=== PATIENT | male | born 1940 | race Caucasian/White ===

== ENCOUNTER 2018-03-25 22:30 | Emergency (ER) | payer MEDICARE ==
[~2018-03-25] VITALS: Ht 190.5 cm; Wt 99.8 kg
[~2018-03-25 22:30] MED LIST: CENTRUM SILVER1 EAC3 PO; ECOTRIN81 MG PO; FISH OIL 1,2001 EAC1 PO; LIPITOR10 MG PO; LIPOFEN50 MG PO; LOSARTAN POTASS25 MG PO; PAXIL20 MG PO; PLAVIX75 MG PO
[2018-03-25] MEDS ORDERED: LIDOCAINE JELLY 2% 10ML URO-JET ONE (23:56)
== END 2018-03-26 01:21 | disposition home or self-care (01) ==
LOC: ER 22:30
DX: R31.0 Gross hematuria (principal); R33.9 Retention of urine, unspecified; N40.1 Benign prostatic hyperplasia with lower urinary tract symptoms; I10 Essential (primary) hypertension; I51.9 Heart disease, unspecified; E78.5 Hyperlipidemia, unspecified; Z85.53 Personal history of malignant neoplasm of renal pelvis
CPT/HCPCS: 99283

== ENCOUNTER 2018-04-28 20:45 | Emergency (ER) | payer MEDICARE ==
[~2018-04-28] VITALS: Ht 190.5 cm; Wt 102.1 kg
[2018-04-28 23:18] VITALS: BP 146/82
== END 2018-04-28 22:50 | disposition short-term general hospital (02) ==
LOC: FSED 20:45
DX: N40.1 Benign prostatic hyperplasia with lower urinary tract symptoms (principal); R33.8 Other retention of urine; Z98.890 Other specified postprocedural states
CPT/HCPCS: 99283

== ENCOUNTER 2018-12-04 11:47 | Emergency (ER) | payer MEDICARE ==
[~2018-12-04] VITALS: Ht 190.5 cm; Wt 102.1 kg
--- NOTE | 2018-12-04 12:58 | NUR ---
Rios insertion attempted. Unable to pass catheter into the bladder. The rios was removed, when resistance was felt and unable to advance past blockage. No urine in the tube. Dr. Lovell was called to the bedside and agreed that removal was correct course. Spoke to pt about being transferred to [facility] to see his regular Urologist.
[2018-12-04 13:17] LABS: BASOPHILS # (AUTO) 0.1 (0.0-0.1); BASOPHILS % 1.3 % (0.0-1.0); EOSINOPHILS # (AUTO) 0.3 (0.0-0.4); EOSINOPHILS % 4.8 % (0.0-6.0); HEMATOCRIT 39.6 % (38.2-49.6); HEMOGLOBIN 13.2 g/dL (14.0-18.0); LYMPHOCYTES % 16.3 % (18.0-39.1); MEAN CORPUSCULAR HEMOGLOBIN 26.8 pg (28-32); MEAN CORPUSCULAR HGB CONC 33.3 g/dL (31-35); MEAN CORPUSCULAR VOLUME 80.3 fL (81-99); MONOCYTES # (AUTO) 0.4 (0.2-0.8); MONOCYTES % 6.8 % (4.4-11.3); NEUTROPHILS # (AUTO) 4.4 (2.1-6.9); NEUTROPHILS % 70.5 % (38.7-80.0); PLATELET COUNT 362 x10e3/uL (140-360); RED BLOOD COUNT 4.93 x10e6/uL (4.3-5.7); RED CELL DISTRIBUTION WIDTH 20.4 % (11.7-14.4)
[2018-12-04 13:33] LABS: ALBUMIN 3.3 g/dL (3.5-5.0); ANION GAP 12.2 mmol/L (8-16); CALCIUM 9.4 mg/dL (8.4-10.2); CREATININE, SERUM 1.46 mg/dL (0.72-1.25); POTASSIUM 4.2 mmol/L (3.5-5.1)
[2018-12-04 15:13] VITALS: BP 168/85
== END 2018-12-04 15:15 | disposition other institution (70) ==
LOC: FSED 11:47
DX: R33.9 Retention of urine, unspecified (principal); R31.9 Hematuria, unspecified; N40.1 Benign prostatic hyperplasia with lower urinary tract symptoms; I10 Essential (primary) hypertension; I25.10 Atherosclerotic heart disease of native coronary artery without angina pectoris; Z95.810 Presence of automatic (implantable) cardiac defibrillator
CPT/HCPCS: 36415; 51700; 80053; 85025; 99283

== ENCOUNTER 2019-02-10 12:37 | Inpatient (IN) | payer MEDICARE ==
[~2019-02-10] VITALS: Ht 190.5 cm; Wt 91.7 kg
[~2019-02-10 12:37] MED LIST changes: -FERROUS SULFAT325 M1 PO; -FINASTERIDE5 MG PO; -IOPAMIDOL 370 MG/ML 200 ML INFUS..BTL INJ ONE; -METOPROLOL SUCC25 MG PO; -NITROGLYCERIN0.4 MG SL; -POTASSIUM CHLO10 ME1 PO; -XARELTO15 MG PO
--- OUTSIDE RECORDS SUMMARY | 2019-02-10 12:39 | XMS REPORT ---
Author Author [facility] Address Unknown Phone Unavailable Care Team Providers Care Systems Software Manager Name Role Phone BERNABE FRANCIS Unavailable Unavailable Problems This patient has no known problems. Allergies, Adverse Reactions, Alerts This patient has no known allergies or adverse reactions. Medications This patient has no known medications. Results Test Description Test Time Test Comments Text Results Atomic Results Result Comments CT CHEST W 2019-02-10 11:55:00 [facility] [address] [id number] Patient Name: FELICIA VALDEZ MR #: [id number] : 1940 Age/Sex: 79/M Req #: [id number] [facility] Physician: Ordered by: BERNABE FRANCIS MD Report #: [id number] Location: CT Room/Bed: Procedure: [id number] CT/CT CHEST W Exam Date: Exam Time: REPORT STATUS: Signed EXAM: CT Chest WITH contrast - PE Protocol INDICATION: Dyspnea, history of blood clots. COMPARISON: None TECHNIQUE: Chest was scanned utilizing a multidetector helical scanner from the lung apex through the level of the diaphragm after administration of IV contrast. Thin section reconstructions were obtained with special concentration on the pulmonary arteries. Coronal and sagittal reformations were obtained. Pulmonary embolism protocol was performed. IV CONTRAST: 100 cc of Isovue 370. RADIATION DOSE: Total DLP: 612.2 mGy*cm Estimated effective dose: (DLP x 0.014 x size factor) mSv COMPLICATIONS: None FINDINGS: LINES/ TUBES: Left-sided AICD device with leads in the right ventricle and coronary sinus. PULMONARY ARTERIES: There are segmental pulmonary emboli bilaterally, for example in the lingula on series 2, image 65 and left lower lobe on image 85. There is segmental/subsegmental pulmonary embolism in the right lower lobe on images 88 and 94. The main pulmonary arter y is enlarged, measuring up to 4.1 cm. LUNGS AND AIRWAYS/PLEURA: The central airways are patent. There is biapical pleural-parenchymal opacity. There are moderate bilateral pleural effusions associated patchy atelectasis in the lower lobes. Scattered mild smooth interlobular septal thickening with associated patchy groundglass opacities, for example in the lower lobes on series 3, image 98. HEART AND MEDIASTINUM: The thyroid gland is normal. No mediastinal or axillary lymphadenopathy. Mildly enlarged right peribronchial lymph node measuring up to 1.1 cm, which may be reactive. There is moderate cardiomegaly. The RV to LV ratio is <1. No pericardial effusion. Ascending thoracic aortic aneurysm measuring up to 5 cm, incompletely evaluated due to phase of contrast. There are atherosclerotic calcifications within the thoracic aorta and coronary vessels. UPPER ABDOMEN: Limited views of the upper abdomen. Multiple bilateral hepatic cysts. Other subcentimeter hepatic hypodensities are too small to characterize. The left hepatic lobe appears atrophic. The partially visualized right kidney and adrenal gland appear unremarkable. Status post left nephrectomy. BONES/SOFT TISSUES: No acute osseous abnormality. No suspicious lytic or blastic lesions. IMPRESSION: Bilateral segmental/subsegmental pulmonary emboli. No lobar or main pulmonary emboli. No CT evidence of pulmonary infarct or right heart strain. Enlarged main pulmonary artery, suggestive of pulmonary hypertension. Cardiomegaly with moderate bilateral pleural effusions and pulmonary edema. Ascending thoracic aortic aneurysm, measuring up to 5 cm, incompletely evaluated due to the phase of contrast. Suggest follow-up CT angiogram for further evaluation. Status post left nephrectomy. Multiple bilateral liver cysts. Other subcentimeter hepatic hypodensities are too small to characterize and may represent cysts. Given the history of renal malignancy, comparison with prior imaging or dedicated abdominal CT or MRI is suggested for evaluation. The above findings were discussed with Dr. Muhammad, covering physician for Dr. Bernabe Francis, in-person on 02/10/2019 at 12:15 PM, who responded indicating that the communication was understood. Signed by: Dr. Regina Finnegan MD on 02/10/2019 12:21 PM Dictated By: REGINA FINNEGAN MD 1221 Transcribed By: TONI on 02/10/19 1221 COPY TO: BERNABE FRANCIS MD
--- NOTE | 2019-02-10 12:56 | NUR ---
No answer at this time from lobby
[2019-02-10] MEDS ORDERED: HEPARIN SOD (PORCINE) 5,000 UNIT/ML VIAL IV ONE (13:45)
[2019-02-10] MEDS ORDERED: NITROGLYCERIN0.4 MG SL (14:26)
[2019-02-10] MEDS ORDERED: METOPROLOL SUCC25 MG PO (14:26)
[2019-02-10] MEDS ORDERED: FERROUS SULFAT325 M1 PO (14:26)
[2019-02-10] MEDS ORDERED: FINASTERIDE5 MG PO (14:26)
[2019-02-10] MEDS ORDERED: ONDANSETRON HCL INJ 2MG/ML 2ML 2 MG/ML VIAL IV PRN (14:45)
[2019-02-10] MEDS ORDERED: MORPHINE SULFATE 2 MG/ML SYR 1ML IV PRN (14:45)
[2019-02-10 14:46] LABS: BASOPHILS # (AUTO) 0.1 (0.0-0.1); EOSINOPHILS # (AUTO) 0.3 (0.0-0.4); EOSINOPHILS % 4.1 % (0.0-6.0); HEMATOCRIT 32.4 % (38.2-49.6); HEMOGLOBIN 10.2 g/dL (14.0-18.0); LYMPHOCYTES # (AUTO) 1.1 (1.0-3.2); LYMPHOCYTES % 14.8 % (18.0-39.1); MEAN CORPUSCULAR HEMOGLOBIN 27.8 pg (28-32); MEAN CORPUSCULAR HGB CONC 31.5 g/dL (31-35); MEAN CORPUSCULAR VOLUME 88.3 fL (81-99); MONOCYTES # (AUTO) 0.7 (0.2-0.8); NEUTROPHILS # (AUTO) 5.2 (2.1-6.9); NEUTROPHILS % 70.7 % (38.7-80.0); PLATELET COUNT 417 x10e3/uL (140-360); RED BLOOD COUNT 3.67 x10e6/uL (4.3-5.7); RED CELL DISTRIBUTION WIDTH 15.2 % (11.7-14.4)
[2019-02-10 14:52] LABS: INR 1.05; PROTHROMBIN TIME 14.2 seconds (11.9-14.5)
[2019-02-10 14:53] LABS: PARTIAL THROMBOPLASTIN TIME 36.6 seconds (23.8-35.5)
[2019-02-10 14:59] LABS: CLARITY,URINE SL CLOUDY (CLEAR); COLOR,URINE YELLOW (YELLOW); KETONES,URINE NEGATIVE (NEGATIVE); LEUKOCYTE ESTERASE ,URINE 2+ (NEGATIVE); NITRITE,URINE NEGATIVE (NEGATIVE); PROTEIN,URINE DIPSTICK TRACE (NEGATIVE)
[2019-02-10 15:00] LABS: BILIRUBIN,URINE NEGATIVE (NEGATIVE); URINE UROBILINOGEN 0.2 mg/dL (0.2 - 1)
[2019-02-10] MEDS ORDERED: MORPHINE SULFATE INJ 4 MG/ML INJ 1ML IV PRN (15:00)
[2019-02-10 15:02] LABS: ALBUMIN 2.5 g/dL (3.5-5.0); ALBUMIN/GLOBULIN RATIO 0.8 (0.8-2.0); ANION GAP 12.5 mmol/L (8-16); CALCIUM 8.6 mg/dL (8.4-10.2); CREATININE, SERUM 1.24 mg/dL (0.72-1.25); MAGNESIUM 1.8 MG/DL (1.3-2.1); POTASSIUM 3.5 mmol/L (3.5-5.1)
[2019-02-10 15:07] LABS: BACTERIA,URINE MODERATE /HPF; RBC,URINE 21-50 /HPF (0-5)
[2019-02-10 15:10] LABS: CREATINE KINASE MB 1.1 ng/mL (0-5.0)
--- NOTE | 2019-02-10 15:15 | Diagnostic Imaging Report ---
EXAMINATION: CHEST SINGLE (PORTABLE) INDICATION: Shortness of breath. COMPARISON: CT chest, PE protocol 02/10/2019. FINDINGS: TUBES and LINES: Left-sided AICD device. LUNGS: Moderate lung volumes. There are perihilar and interstitial opacities. There are patchy opacities at the lung bases. PLEURA: Small bilateral pleural effusions. No evidence of pneumothorax. HEART AND MEDIASTINUM: The cardiomediastinal silhouette is unremarkable. BONES AND SOFT TISSUES: No acute osseous abnormality. UPPER ABDOMEN: No free air under the diaphragm. IMPRESSION: Mild pulmonary interstitial edema with small bilateral pleural effusions. Patchy opacities at the lung bases, likely atelectasis. Signed by: Dr. Yessica Martinez MD on 02/10/2019 3:11 PM
[2019-02-10] MEDS: FAMOTIDINE 20 MG/2 ML VIAL IV SCH (15:40)
[2019-02-10] MEDS: HEPARIN 25,000U/0.45% NS 250ML 1,500 UNIT in Premix Bag 250 ML IV SCH (15:44)
[2019-02-10] MEDS: MEROPENEM 1GM 100 ML IV SCH ×2 (17:00→23:56)
[2019-02-10 17:10] VITALS: BP 179/90
[2019-02-10 17:20] VITALS: BP 179/90
--- NOTE | 2019-02-10 17:30 | NUR ---
Pt arrived from ED at this time. Pt was admitted for pulmonary embolism. Pt is aox4 and able to verbalize needs. Denies any pain at this time. Pt is on a heparin drip at this time at 15ml/hr to right forearm. Attending and consults have been notified. Family at the bedside.
[2019-02-10 17:32] VITALS: BP 179/90
--- NOTE | 2019-02-10 17:58 | Consultation ---
DATE OF CONSULTATION: 02/10/2019 Cardiology Consult Note REASON FOR CONSULT: Pulmonary edema, acute pulmonary embolism, coronary artery disease. CHIEF COMPLAINT: Shortness of breath. HISTORY OF PRESENT ILLNESS: The patient is a 79-year-old man, history of paroxysmal atrial fibrillation, history of coronary artery disease status post percutaneous coronary intervention to the LAD in November 2018. History of prostate problems status post prostate surgery and recurrent hematuria since then. He has had a complicated last few months with recurrent admissions to several different hospitals for recurrent severe hematuria, sometimes requiring multiple blood transfusions. Given that he had a recent LAD stent placed in November 2018. His dual antiplatelet therapy could not be discontinued. His Xarelto was discontinued despite having history of atrial fibrillation due to ongoing bleeding issues. Recently admitted to [facility] with severe hematuria requiring multiple blood transfusions and ICU admission for hypotension. He underwent palpable optical coherence tomography of his LAD stent during this hospitalization, which showed only 50% stent strut coverage so dual antiplatelet was continued. He was seen in clinic yesterday with Dr. Garcia and he reported severe shortness of breath and was desatting with exertion. He had outpatient TTP protocol performed given hypoxemia and recent hospitalization, which showed multiple subsegmental pulmonary emboli. He is also noted to have pulmonary edema and increased BNP. He denies any chest pain. He has been compliant with his medication. REVIEW OF SYSTEMS: As above, otherwise negative. PAST MEDICAL HISTORY: 1. Coronary artery disease, status post drug-eluting stent to the left anterior descending artery in November 2018. 2. History of paroxysmal atrial fibrillation, now off anticoagulation. 3. Recurrent hematuria, status post prostate procedures. 4. Hypertension. 5. Hyperlipidemia. SOCIAL HISTORY: The patient does not smoke, drink, or abuse drugs. FAMILY HISTORY: No family history of early CAD or sudden cardiac . OUTPATIENT MEDICATIONS: Reviewed. OBJECTIVE: VITAL SIGNS: Currently temperature is 97.9, pulse 71, respiratory rate 20, blood pressure 156/83, and saturating 97% on nasal cannula. GENERAL: Elderly white man, in no acute distress. Pale. CARDIOVASCULAR: Regular rate and rhythm. No murmurs, rubs, or gallops. LUNGS: Bibasilar rales. ABDOMEN: Soft, nontender, nondistended. NEURO AND PSYCH: Alert and oriented to person, place, and time. Normal affect. INPATIENT MEDICATIONS: Reviewed. LABORATORY DATA: Reviewed. Notable for hemoglobin of 10.2, BNP of 2500. Troponins are negative. IMAGING DATA: Reviewed. Chest CT showed multiple subsegmental bilateral pulmonary emboli as well as some pulmonary edema. Electrocardiogram reviewed. ASSESSMENT: 1. Acute pulmonary embolism with bilateral subsegmental pulmonary embolism. 2. Coronary artery disease, status post percutaneous coronary intervention to the left anterior descending artery in November 2018. 3. Recurrent hematuria. 4. Paroxysmal atrial fibrillation. 5. Hypertension. 6. Hyperlipidemia. 7. Acute on chronic systolic heart failure exacerbation. PLAN: To start IV heparin for acute PE. We monitor closely for recurrence of his hematuria. Continue Plavix given recent PCI. Okay to hold aspirin given risk of bleeding as long as patient is fully anticoagulated. Continue his home medications. Otherwise, we will start some IV Lasix given pulmonary edema. Echocardiogram is pending. Thank you for this consult. We will continue to follow. MD AUBREY HinsonP/MODL /[id number]
[2019-02-10] MEDS: LOSARTAN POTASSIUM 100 MG TAB PO SCH (18:14)
[2019-02-10] MEDS: METOPROLOL SUCCINATE 25 MG TAB XL PO SCH (18:15)
--- NOTE | 2019-02-10 19:20 | NUR ---
RECEIVED PATIENT. PATIENT IS RESTING IN BED, AAOX3. RESP EVEN AND UNLABORED. NO ACUTE DISTRESS NOTED. HEPARIN DRIP INFUSING AT 1500 UNITS/HR. CARBAJAL IN PLACE. TELE IN PLACE NOTED. CALL LIGHT WITHIN REACH. INSTRUCT TO CALL FOR ASSISTANCE. BED LOW/LOCKED. CONTINUE TO MONITOR CLOSELY
[2019-02-10 20:00] VITALS: BP 188/94
--- NOTE | 2019-02-10 21:15 | NUR ---
BP ELEVATED NOTED, PAGED DR XAVIER FOR ORDER. AWAITING FOR MD TO CALL BACK.
[2019-02-10] MEDS ORDERED: CLONIDINE HCL 0.1 MG TAB PO ONE (21:45)
[2019-02-10] MEDS ORDERED: ZOLPIDEM TARTRATE 5 MG TAB PO PRN (21:45)
--- NOTE | 2019-02-10 21:45 | NUR ---
SPOKE TO DR XAVIER ABOUT HIGH BP. NEW ORDER RECEIVED.
[2019-02-10] MEDS ORDERED: MEROPENEM 1GRAM 1 GM in SODIUM CHLORIDE 0.9% 100 ML 100 ML IV SCH (22:00)
[2019-02-10 22:36] LABS: CREATINE KINASE MB 1.3 ng/mL (0-5.0)
--- NOTE | 2019-02-10 22:43 | NUR ---
RECEIVED HIGH PTT 151.5, STOP HEPARIN DRIP PER PROTOCOL. WILL RESUME IN AN HOUR
--- NOTE | 2019-02-10 23:45 | NUR ---
RESUMED HEPARIN DRIP AND DECREASE 200UNITS/HR PER PROTOCOL. HEPARIN IS INFUSING AT 1300 UNITS/HR. CONTINUE TO MONITOR CLOSELY
[2019-02-10 23:50] VITALS: BP 188/94
[2019-02-10] MEDS ORDERED: SODIUM CHLORIDE 0.9% 250ML 250 ML ONE (23:58)
[2019-02-11] VITALS: BP 141/84
[2019-02-11] MEDS: FAMOTIDINE 20 MG/2 ML VIAL IV SCH ×2 (02:52→16:07)
[2019-02-11 04:00] VITALS: BP 156/91
[2019-02-11 06:41] LABS: BASOPHILS # (AUTO) 0.1 (0.0-0.1); BASOPHILS % 1.5 % (0.0-1.0); EOSINOPHILS # (AUTO) 0.5 (0.0-0.4); EOSINOPHILS % 6.1 % (0.0-6.0); HEMATOCRIT 33.9 % (38.2-49.6); HEMOGLOBIN 10.8 g/dL (14.0-18.0); LYMPHOCYTES # (AUTO) 1.1 (1.0-3.2); LYMPHOCYTES % 14.4 % (18.0-39.1); MEAN CORPUSCULAR HEMOGLOBIN 28.1 pg (28-32); MEAN CORPUSCULAR HGB CONC 31.9 g/dL (31-35); MEAN CORPUSCULAR VOLUME 88.1 fL (81-99); MONOCYTES # (AUTO) 0.7 (0.2-0.8); NEUTROPHILS % 67.7 % (38.7-80.0); PLATELET COUNT 432 x10e3/uL (140-360); RED BLOOD COUNT 3.85 x10e6/uL (4.3-5.7); RED CELL DISTRIBUTION WIDTH 15.2 % (11.7-14.4)
[2019-02-11 07:05] LABS: ALBUMIN 2.5 g/dL (3.5-5.0); ALBUMIN/GLOBULIN RATIO 0.7 (0.8-2.0); ANION GAP 12.5 mmol/L (8-16); CALCIUM 8.8 mg/dL (8.4-10.2); CHOL/HDL RATIO 3.5 (3.9-4.7); CREATININE, SERUM 1.19 mg/dL (0.72-1.25)
[2019-02-11 07:08] LABS: POTASSIUM 4.5 mmol/L (3.5-5.1)
--- NOTE | 2019-02-11 07:15 | NUR ---
pt alert resp even and unlabored at this time no distress noted. pt has heparin infusing at 13, cc/hr, pt tolerating well, no c/o pain at this time, Ocampo to gravity, dark red blood inside, call light in reach.
[2019-02-11 07:26] LABS: CREATINE KINASE MB 1.4 ng/mL (0-5.0)
[2019-02-11] MEDS: MEROPENEM 1GM 100 ML IV SCH ×3 (08:00→23:36)
--- NOTE | 2019-02-11 08:30 | NUR ---
pt heparin infusing at 1300, ptt for 0800 is 87, heparin decreased to 1200, pt tolerating well, family member at bedside. call light in reach.
[2019-02-11 08:41] VITALS: BP 174/86
[2019-02-11] MEDS ORDERED: LOSARTAN POTASSIUM 25 MG TAB PO SCH (09:00)
[2019-02-11] MEDS: HEPARIN 25,000U/0.45% NS 250ML 1,500 UNIT in Premix Bag 250 ML IV SCH (12:46)
--- NOTE | 2019-02-11 13:22 | NUR ---
Nutrition Screen Note RD Recommendation for Physician:Continue diet as ordered Plan of Care: RD following, monitoring for adequacy and tolerance Nutrition reason for involvement: Nutrition Risk Trigger - MST Primary Diagnose(s): PE Ht:75 in Wt:211.13lbs BMI:26.4 kg/m2 IBW:196lbs RD Assessment:(02/11) Initial encounter with patient. Pt has limited acceptance of "hospital food" [employer] at bedside. Pt states will bring meals. Pt denies any nausea, vomiting, or diarrhea. Pt denies any difficulty chewing or swallowing. Current Diet: Cardiac Malnutrition Evaluation ) The patient does not meet criteria for a specified degree of malnutrition at this time. Will re-evaluate at follow-up as appropriate. Diet Education Needs Assessment: Diet education not indicated. Diet education indicated, Diet Adequacy: Meeting calorie needs, Meeting protein needs, Meeting fluid needs, Tolerance: Tolerating PO Nutrition Care Level:diego Kerns RD, LD, CNSC
[2019-02-11 13:45] VITALS: BP 183/91
[2019-02-11 16:12] VITALS: BP 163/77
[2019-02-11] MEDS: AMLODIPINE BESYLATE 5 MG TAB PO SCH (16:26)
--- NOTE | 2019-02-11 19:11 | NUR ---
report given to oncoming nurse, for cont. care.
[2019-02-11 20:00] VITALS: BP 156/80
[2019-02-12] VITALS (8 sets, daily range): BP systolic 138–182; BP diastolic 74–99
[2019-02-12] MEDS: FAMOTIDINE 20 MG/2 ML VIAL IV SCH ×2 (04:00→15:26)
--- NOTE | 2019-02-12 07:12 | NUR ---
pt awake resp even and unlabored at this time no distress noted, pt has rios to gravity no c/o pin when asked, call light in reach
[2019-02-12] MEDS: MEROPENEM 1GM 100 ML IV SCH ×2 (08:23→16:00)
[2019-02-12] MEDS: AMLODIPINE BESYLATE 5 MG TAB PO SCH (08:23)
[2019-02-12] MEDS: LOSARTAN POTASSIUM 100 MG TAB PO SCH (08:23)
[2019-02-12] MEDS: METOPROLOL SUCCINATE 25 MG TAB XL PO SCH (08:24)
[2019-02-12] MEDS ORDERED: FUROSEMIDE INJ 10 MG/ML 2 ML VIAL IV ONE (10:15)
[2019-02-12] MEDS: HEPARIN 25,000U/0.45% NS 250ML 1,500 UNIT in Premix Bag 250 ML IV SCH (15:42)
--- NOTE | 2019-02-12 16:51 | Progress Note ---
DATE: Cardiology Progress Note SUBJECTIVE: The patient is overall feeling better. The hematuria has improved, but still present. No chest pain. The patient does report shortness of breath. OBJECTIVE: VITAL SIGNS: Temperature is 97.6, heart rate 75, respirations are 18, blood pressure is 157/83, and oxygen saturation 96% on 2 L nasal cannula. GENERAL: He is an elderly man, lying comfortably in bed. HEAD: Normocephalic, atraumatic. CARDIOVASCULAR: Regular rate and rhythm. LUNGS: Bibasilar rales. ABDOMEN: Soft, nontender, and nondistended. EXTREMITIES: Trace edema. MEDICATIONS: Reviewed. LABORATORY DATA: Reviewed. Hemoglobin 10.8. IMPRESSION: 1. Acute pulmonary embolism. 2. Coronary artery disease, status post percutaneous coronary intervention. 3. Recurring hematuria. 4. Paroxysmal atrial fibrillation. 5. Hypertension. RECOMMENDATIONS: Continue IV heparin and Plavix. Reasonable to transfer the patient if any urologic procedure will be needed. If no urologic procedure is going to take place, can restart Xarelto. Continue Lasix for diuresis. Georgi Fox DO BM/MODL /[id number]
--- NOTE | 2019-02-12 19:16 | NUR ---
report given to oncoming nurse, for continued care.
[2019-02-12] MEDS: FINASTERIDE 5 MG TAB PO SCH (21:59)
[2019-02-13] VITALS (8 sets, daily range): BP systolic 128–178; BP diastolic 73–98
[2019-02-13] MEDS: MEROPENEM 1GM 100 ML IV SCH ×2 (00:41→09:15)
[2019-02-13] MEDS: FAMOTIDINE 20 MG/2 ML VIAL IV SCH ×2 (02:29→17:00)
[2019-02-13 05:19] LABS: BASOPHILS # (AUTO) 0.1 (0.0-0.1); BASOPHILS % 1.6 % (0.0-1.0); EOSINOPHILS # (AUTO) 0.2 (0.0-0.4); EOSINOPHILS % 4.2 % (0.0-6.0); HEMATOCRIT 32.5 % (38.2-49.6); HEMOGLOBIN 10.3 g/dL (14.0-18.0); LYMPHOCYTES # (AUTO) 1.1 (1.0-3.2); LYMPHOCYTES % 21.6 % (18.0-39.1); MEAN CORPUSCULAR HEMOGLOBIN 27.5 pg (28-32); MEAN CORPUSCULAR HGB CONC 31.7 g/dL (31-35); MEAN CORPUSCULAR VOLUME 86.9 fL (81-99); MONOCYTES # (AUTO) 0.6 (0.2-0.8); MONOCYTES % 11.3 % (4.4-11.3); NEUTROPHILS % 60.9 % (38.7-80.0); PLATELET COUNT 404 x10e3/uL (140-360); RED BLOOD COUNT 3.74 x10e6/uL (4.3-5.7)
--- NOTE | 2019-02-13 07:00 | NUR ---
BEDSIDE REPORT TAKEN FROM COMPLIANCE CONSULTANT RN. PT DENIES NEEDS AT THIS TIME.
[2019-02-13] MEDS: HEPARIN 25,000U/0.45% NS 250ML 1,500 UNIT in Premix Bag 250 ML IV SCH (09:06)
[2019-02-13] MEDS: LOSARTAN POTASSIUM 100 MG TAB PO SCH (09:16)
[2019-02-13] MEDS: FUROSEMIDE 20 MG TAB PO SCH (09:17)
[2019-02-13] MEDS: AMLODIPINE BESYLATE 5 MG TAB PO SCH (09:17)
[2019-02-13] MEDS: PAROXETINE HCL 20 MG TAB PO SCH (09:17)
[2019-02-13] MEDS: METOPROLOL SUCCINATE 25 MG TAB XL PO SCH (09:17)
[2019-02-13] MEDS: FERROUS SULFATE 325 MG TAB PO SCH (09:20)
--- NOTE | 2019-02-13 10:21 | NUR ---
CASE MANAGEMENT ASSESSMENT Welder/Fabricator to bedside to discuss plan of care with patient/family. CM/SW role and care transitions discussed. Anticipated discharge plan discussed along with duration of care. CM/SW discussed patients right to make decisions in care. CM/SW work hours given. Patient lives: with Kesha Admit/Transfer: thru ED Hospital/ER visits since last admit: stated he has been in the hospital 7 times in last 2 months, [facility] and here for prostate issues; now here for PE POA/Emergency contact: Kesha Palmer [phone] Current/Previous Home Health: none PCP/Follow-up Care: Dr. Raza Stephenson - advised pt to follow up with his MD within 5 days of discharge. Pt acknowledged. Current/Previous DME: none. pt states he is independent Medications (referring to index hospitalization or the first time you were in the hospital) a. Were changes made in your medications when you were in the hospital on Nov,Dec 2018? yes b. Did you understand the changes? yes c. Were you able to obtain your new medications right away? yes d. Were you able to take your medications like the doctor wanted you to? yes e. Did the hospital give you an accurate, easy to understand list of medications when you left? yes Scale of 1-10 how comfortable does patient feel with disease management in outpatient settin Other Services: none Employment Status: retired Areas of Concerns: PE Referral Needs: none Education Needs: PE, anticoagulation medication IMM/MICHELE given and signed (if applicable): IMM explained. pt verbalized understanding. Signed copy placed in chart. Copy to pt. Goal for discharge: Home. will provide transportation. CM/SW left business card at the bedside with contact information. Name and number was also written on the patients whiteboard. Patient verbalized understanding of discussion. CM will follow-up with ongoing discharge and transition of care needs.
--- NOTE | 2019-02-13 10:40 | Progress Note ---
DATE: Cardiology Progress Note SUBJECTIVE: The patient denies any chest pain or shortness of breath. He does report worsening of his hematuria with blood in his Ocampo bag. No suprapubic pain. OBJECTIVE: VITAL SIGNS: Temperature is 96.3, heart rate is 76, respirations are 18, blood pressure is 174/86, and oxygen saturation is 96% on room air. GENERAL: He is well-appearing, well-built, in no apparent distress. CARDIOVASCULAR: Regular rate and rhythm. No murmurs. LUNGS: Clear to auscultation. ABDOMEN: Soft, nontender, and nondistended. EXTREMITIES: Trace edema. LABORATORY VALUES: Reviewed. Hemoglobin 10.8 and platelets 432. Creatinine 1.19. Troponins negative x3. Telemetry monitoring revealed atrial paced rhythm with premature ventricular complexes. IMPRESSION: 1. Pulmonary embolism. 2. Coronary artery disease, status post percutaneous coronary intervention of the left anterior descending coronary artery in November 2018. 3. Recurrent hematuria. 4. Paroxysmal atrial fibrillation. 5. Hypertension. 6. Hyperlipidemia. 7. Acute on chronic systolic heart failure. RECOMMENDATIONS: This is a difficult situation. The patient has recurrent hematuria, on various types of antiplatelets and anticoagulants. He was previously taken off Xarelto due to recurrent hematuria. The patient does require acute anticoagulation with heparin for his acute pulmonary embolism. He also requires Plavix for his recent LAD stent. Discussed with primary team and agree with transferring to a facility where his urologist can perform any type of procedure. We will continue to follow along closely. We will need to increase his antihypertensives for better blood pressure control. Thank you for the consultation. We will follow along with you. Georgi Fox DO BM/MODL /[id number]
--- NOTE | 2019-02-13 12:37 | Consultation ---
DATE OF CONSULTATION: 02/12/2019 Urology Consultation Consultation was called by Dr. Carlos. CHIEF COMPLAINT AND REASON FOR CONSULTATION: Gross hematuria. HISTORY OF PRESENT ILLNESS: Mr. Palmer is a 79-year-old male patient of Dr. Brantley, who has performed approximately seven prostate procedures on the patient in the past year. The patient has been readmitted multiple times in the last just several weeks ago at [facility] for gross hematuria. In the interim, the patient presented to the emergency room at [facility] with a newly diagnosed pulmonary embolus, shortness of breath. He was anticoagulated once again. He has been experiencing hematuria. He has a chronic indwelling Ocampo catheter. PAST MEDICAL HISTORY: As above. Paroxysmal atrial fibrillation, coronary artery disease, status post stent placement to the left anterior descending in November 2018, hypertension, hyperlipidemia. MEDICATIONS: Please see MAR. ALLERGIES: NKDA. SOCIAL HISTORY: Denied smoking or drinking. FAMILY HISTORY: Denied urologic stones or malignancies. REVIEW OF SYSTEMS: Noncontributory other than problems mentioned above for 12 organ systems. PHYSICAL EXAMINATION: GENERAL: An elderly male currently in no acute distress. VITAL SIGNS: Temperature 97.6, pulse 75, respirations 17, blood pressure 157/83. HEENT: Sclerae anicteric. NECK: Supple. BACK: Without costovertebral angle tenderness bilaterally. ABDOMEN: Soft. It is nontender. There is no palpable bladder. : Normal male phallus with a Ocampo catheter draining bloody urine. EXTREMITIES: Positive edema. NEUROLOGIC: Moves 4 extremities. PSYCH: Alert. Mood appropriate. SKIN: Intact, normal color. PERTINENT LABORATORY DATA: Hemoglobin 10, hematocrit 33, platelet count 432,000, white count 7430. Sodium 135, potassium 4.5, chloride 100, bicarb 27, BUN 11, creatinine 1.1, glucose 109. Urinalysis, 21 to 50 reds, 11 to 20 whites, PTT of 151. IMPRESSION: 1. Gross hematuria. 2. Question urinary tract infection. 3. Benign prostatic hypertrophy. 4. Urinary retention. 5. Coagulopathy. 6. Hypertension. 7. Pulmonary embolus. PLAN: Defer lytes, heme, and hypertension to the primary service. The patient needs anticoagulation secondary to pulmonary embolus. The patient's prostate has had multiple operations. Currently, we will provide supportive care in the setting of his massive anticoagulation necessary for pulmonary embolus. Might irrigate the catheter as necessary. From the urologic standpoint, the patient will need to follow with his normal urologist, Dr. Michel. Thank you for allowing me to participate in the care of your patient. We will be happy to follow along with you. Bry Unger MD ES/MODL /[id number] cc: Sarath Carlos MD
[2019-02-13] MEDS: CLOPIDOGREL BISULFATE 75 MG TAB PO SCH (17:39)
[2019-02-13] MEDS: FINASTERIDE 5 MG TAB PO SCH (21:21)
[2019-02-14] VITALS (8 sets, daily range): BP systolic 130–180; BP diastolic 73–97
[2019-02-14] MEDS: FAMOTIDINE 20 MG/2 ML VIAL IV SCH ×2 (03:07→14:56)
[2019-02-14 05:27] LABS: BASOPHILS # (AUTO) 0.1 (0.0-0.1); BASOPHILS % 1.8 % (0.0-1.0); EOSINOPHILS # (AUTO) 0.3 (0.0-0.4); HEMATOCRIT 35.4 % (38.2-49.6); HEMOGLOBIN 11.2 g/dL (14.0-18.0); LYMPHOCYTES # (AUTO) 1.4 (1.0-3.2); LYMPHOCYTES % 25.6 % (18.0-39.1); MEAN CORPUSCULAR HEMOGLOBIN 27.8 pg (28-32); MEAN CORPUSCULAR HGB CONC 31.6 g/dL (31-35); MEAN CORPUSCULAR VOLUME 87.8 fL (81-99); MONOCYTES # (AUTO) 0.5 (0.2-0.8); MONOCYTES % 9.1 % (4.4-11.3); NEUTROPHILS # (AUTO) 3.3 (2.1-6.9); NEUTROPHILS % 58.1 % (38.7-80.0); PLATELET COUNT 455 x10e3/uL (140-360); RED BLOOD COUNT 4.03 x10e6/uL (4.3-5.7); RED CELL DISTRIBUTION WIDTH 14.9 % (11.7-14.4)
[2019-02-14 05:49] LABS: BLOOD UREA NITROGEN 8 mg/dL (7-26); BUN/CREATININE RATIO 9 (6-25); CALCIUM 9.2 mg/dL (8.4-10.2); CARBON DIOXIDE 28 mmol/L (22-29); CHLORIDE 96 mmol/L (98-107); CREATININE, SERUM 0.86 mg/dL (0.72-1.25); EST GLOMERULAR FILTRATION RATE > 60 ML/MIN (60-); GLUCOSE 100 mg/dL (74-118); SODIUM 133 mmol/L (136-145)
--- NOTE | 2019-02-14 07:00 | NUR ---
BEDSIDE REPORT TAKEN FROM KITCHEN STEWARD RN. PT DENIES NEEDS AT THIS TIME.
[2019-02-14] MEDS: LOSARTAN POTASSIUM 100 MG TAB PO SCH (08:16)
[2019-02-14] MEDS: FUROSEMIDE 20 MG TAB PO SCH (08:16)
[2019-02-14] MEDS: METOPROLOL SUCCINATE 25 MG TAB XL PO SCH (08:17)
[2019-02-14] MEDS: CLOPIDOGREL BISULFATE 75 MG TAB PO SCH (08:17)
[2019-02-14] MEDS: FERROUS SULFATE 325 MG TAB PO SCH (08:18)
[2019-02-14] MEDS: PAROXETINE HCL 20 MG TAB PO SCH (08:18)
[2019-02-14] MEDS: AMLODIPINE BESYLATE 5 MG TAB PO SCH (08:18)
[2019-02-14] MEDS: HEPARIN 25,000U/0.45% NS 250ML 1,500 UNIT in Premix Bag 250 ML IV SCH (08:49)
[2019-02-14] MEDS ORDERED: POTASSIUM CHLORIDE 20 MEQ TAB CR PO ONE (09:30)
[2019-02-14] MEDS ORDERED: FUROSEMIDE 40 MG TAB PO ONE (12:15)
[2019-02-14] MEDS: RIVAROXABAN 15 MG TABLET PO SCH ×2 (12:50→17:05)
--- NOTE | 2019-02-14 19:05 | NUR ---
BEDSIDE REPORT GIVEN TO STREET LIGHT REPAIRER RN
--- NOTE | 2019-02-14 19:28 | Progress Note ---
DATE: Cardiology Progress Note SUBJECTIVE: The patient feels better. Denies any chest pain, shortness of breath. His hematuria is cleaning up. OBJECTIVE: GENERALLY: He is well-appearing, well-built, no apparent distress. CARDIOVASCULAR: Regular rate and rhythm. LUNGS: Diminished breath sounds at bilateral bases. ABDOMEN: Soft, nontender, nondistended. EXTREMITIES: No edema. LABORATORY DATA: Reviewed. CARDIOVASCULAR MEDICATIONS: Reviewed. TELEMETRY: Monitoring revealed ventricular paced rhythm. IMPRESSION: 1. Pulmonary embolism. 2. Coronary artery disease status post percutaneous coronary intervention. 3. Paroxysmal atrial fibrillation. 4. Recurrent hematuria. 5. Hypertension. 6. Hyperlipidemia. 7. Acute on chronic systolic congestive heart failure. RECOMMENDATIONS: This patient's hematuria has resolved on heparin and Plavix. We will stop heparin and transition to Xarelto 15 mg p.o. b.i.d. Continue Plavix. He can stay off aspirin. We will increase his Lasix to 40 mg daily. Otherwise, continue all current cardiovascular medications. The patient may be discharged from a cardiovascular standpoint with outpatient followup. Georgi Fox DO BM/MODL /[id number]
[2019-02-14] MEDS: FINASTERIDE 5 MG TAB PO SCH (21:12)
[2019-02-15] MEDS: FAMOTIDINE 20 MG/2 ML VIAL IV SCH (04:01)
[2019-02-15 05:10] LABS: BASOPHILS # (AUTO) 0.1 (0.0-0.1); BASOPHILS % 1.9 % (0.0-1.0); EOSINOPHILS # (AUTO) 0.3 (0.0-0.4); EOSINOPHILS % 6.3 % (0.0-6.0); HEMATOCRIT 31.7 % (38.2-49.6); HEMOGLOBIN 10.2 g/dL (14.0-18.0); LYMPHOCYTES % 24.2 % (18.0-39.1); MEAN CORPUSCULAR HEMOGLOBIN 27.6 pg (28-32); MEAN CORPUSCULAR HGB CONC 32.2 g/dL (31-35); MEAN CORPUSCULAR VOLUME 85.9 fL (81-99); MONOCYTES # (AUTO) 0.5 (0.2-0.8); MONOCYTES % 11.9 % (4.4-11.3); NEUTROPHILS # (AUTO) 2.4 (2.1-6.9); NEUTROPHILS % 55.5 % (38.7-80.0); PLATELET COUNT 373 x10e3/uL (140-360); RED BLOOD COUNT 3.69 x10e6/uL (4.3-5.7); RED CELL DISTRIBUTION WIDTH 14.8 % (11.7-14.4)
[2019-02-15 05:31] VITALS: BP 112/84
[2019-02-15 05:48] LABS: ANION GAP 10.4 mmol/L (8-16); BLOOD UREA NITROGEN 6 mg/dL (7-26); BUN/CREATININE RATIO 8 (6-25); CALCIUM 8.8 mg/dL (8.4-10.2); CARBON DIOXIDE 30 mmol/L (22-29); CHLORIDE 100 mmol/L (98-107); EST GLOMERULAR FILTRATION RATE > 60 ML/MIN (60-); GLUCOSE 99 mg/dL (74-118); POTASSIUM 3.4 mmol/L (3.5-5.1); SODIUM 137 mmol/L (136-145)
--- NOTE | 2019-02-15 06:15 | Progress Note ---
DATE: Cardiology Progress Note SUBJECTIVE: The patient denies any chest pain or shortness of breath. OBJECTIVE: VITAL SIGNS: Temperature is 97.4, heart rate 71, respirations are 20, blood pressure is 128/74, and oxygen saturation is 100% on room air. GENERAL: Well appearing, well built, in no apparent distress. CARDIOVASCULAR: Regular rate and rhythm. LUNGS: Diminished breath sounds at bilateral bases. ABDOMEN: Soft, nontender, and nondistended. LABORATORY DATA: Reviewed. MEDICATIONS: Reviewed. IMPRESSION: 1. Coronary artery disease, status post percutaneous coronary intervention. 2. Acute on chronic systolic congestive heart failure. 3. Paroxysmal atrial fibrillation. 4. Recurrent hematuria. 5. Acute pulmonary embolism. RECOMMENDATIONS: His hematuria has improved. Continue monitor on heparin. The patient will transition to Xarelto at the time of discharge. Also continue Plavix for his recent LAD stent. Continue all other current cardiovascular medications including diuresis. Georgi Fox DO BM/MODL /[id number]
[2019-02-15 07:47] VITALS: BP 167/88
[2019-02-15 08:05] VITALS: BP 167/88
[2019-02-15] MEDS ORDERED: POTASSIUM CHLORIDE 20 MEQ TAB CR PO SCH (09:00)
[2019-02-15] MEDS: PAROXETINE HCL 20 MG TAB PO SCH (09:02)
[2019-02-15] MEDS: CLOPIDOGREL BISULFATE 75 MG TAB PO SCH (09:02)
[2019-02-15] MEDS: AMLODIPINE BESYLATE 5 MG TAB PO SCH (09:02)
[2019-02-15] MEDS: RIVAROXABAN 15 MG TABLET PO SCH (09:02)
[2019-02-15] MEDS: LOSARTAN POTASSIUM 100 MG TAB PO SCH (09:02)
[2019-02-15] MEDS: METOPROLOL SUCCINATE 25 MG TAB XL PO SCH (09:02)
[2019-02-15] MEDS: FERROUS SULFATE 325 MG TAB PO SCH (09:02)
[2019-02-15] MEDS ORDERED: XARELTO15 MG PO (09:38)
[2019-02-15] MEDS ORDERED: POTASSIUM CHLO10 ME1 PO (09:39)
--- NOTE | 2019-02-15 10:40 | NUR ---
IMM letter delivered and explained to pt. He verbalized understanding. Signed copy placed in chart. Copy to pt.
[2019-02-15 11:55] VITALS: BP 116/62
--- NOTE | 2019-02-15 12:07 | NUR ---
RAC and RFA IV discontinued. 2x2 dressing and tape placed. Taken via wheelchair by PCT to personal car. AAOX3 to time, person, place. Respirations even and unlabored. [address] draining clear yellow urine. Discharge instructions, rx, and all personal belongings taken with patient. Accompanied by
--- NOTE | 2019-02-15 12:36 | Discharge Summary ---
DISCHARGE DIAGNOSES: 1. Bilateral pulmonary embolism. 2. Gross hematuria, resolved. 3. Chronic atrial fibrillation, now back on Xarelto. 4. Coronary artery disease status post recent LAD stent. HOSPITAL COURSE: Mr. Palmer is a 79-year-old gentleman, who was sent to the hospital from Dr. Powell's office because of a possible PE. He [facility] and has a very complicated medical history. He has recurrent hematuria and has recently been admitted to [facility] several times. He has to stop taking both his Xarelto and clopidogrel due to the ongoing hematuria. He was evaluated by Dr. Powell and after CT scanning, it was found that he had bilateral pulmonary embolism, he was sent to the hospital to start on heparin and to decide on further treatment. At the hospital, few hours after he was started back on heparin, he began having gross hematuria. His hemoglobin level was monitored closely. Initially, it was trending down, but then after approximately 48-72 hours the hematuria began to slow down and the hemoglobin level stabilized. A consultation was requested with our urologist here in the hospital, who agreed with continuing observation, not to remove the Ocampo catheter, and to continue with anticoagulation as it was needed in the current clinical situation. The patient has steadily improved. The building consultant has switched him back to Xarelto 15 mg twice a day, and given the fact that he had a recent stent to the LAD, he has been also restarted on clopidogrel. At the time of discharge, the patient's urine is clear, he is tolerating all his medications and he is being discharged home in stable conditions. He is asked to follow up with Urology, Cardiology, and his PCP. MD GINO Koo/LOIS /[id number] MARIAN
== END 2019-02-15 12:07 | disposition home or self-care (01) | DRG 175 ==
LOC: ER 12:37 → ERHOLD 14:42 → MED/SURG2 17:10
PROVIDERS: ADMIT Internal Medicine; ATTEND Internal Medicine
DX: I26.99 Other pulmonary embolism without acute cor pulmonale (principal); I50.23 Acute on chronic systolic (congestive) heart failure; N39.0 Urinary tract infection, site not specified; D68.32 Hemorrhagic disorder due to extrinsic circulating anticoagulants; I11.0 Hypertensive heart disease with heart failure; N40.1 Benign prostatic hyperplasia with lower urinary tract symptoms; R33.8 Other retention of urine; R31.0 Gross hematuria; I48.2 Chronic atrial fibrillation; Z79.01 Long term (current) use of anticoagulants; I25.10 Atherosclerotic heart disease of native coronary artery without angina pectoris; Z95.5 Presence of coronary angioplasty implant and graft; E78.5 Hyperlipidemia, unspecified; E87.6 Hypokalemia; I48.0 Paroxysmal atrial fibrillation; T45.515A Adverse effect of anticoagulants, initial encounter
CPT/HCPCS: 36415; 71045; 80048; 80053; 80061; 81001; 82550; 82553; 83735; 83880; 84484; 85025; 85610; 85730; 87086; 93005; 93306; 93971; 99284; J1644; J1940; J7050

== ENCOUNTER → 2019-02-10 | Outpatient (CLI) | payer MEDICARE ==
[~2019-02-10] MED LIST changes: +FERROUS SULFAT325 M1 PO; +FINASTERIDE5 MG PO; +IOPAMIDOL 370 MG/ML 200 ML INFUS..BTL INJ ONE; +METOPROLOL SUCC25 MG PO; +NITROGLYCERIN0.4 MG SL; +POTASSIUM CHLO10 ME1 PO; +XARELTO15 MG PO
[2019-02-10 11:10] LABS: CREATININE, SERUM 1.37 mg/dL (0.72-1.25)
--- NOTE | 2019-02-10 12:24 | Diagnostic Imaging Report ---
EXAM: CT Chest WITH contrast - PE Protocol INDICATION: Dyspnea, history of blood clots. COMPARISON: None TECHNIQUE: Chest was scanned utilizing a multidetector helical scanner from the lung apex through the level of the diaphragm after administration of IV contrast. Thin section reconstructions were obtained with special concentration on the pulmonary arteries. Coronal and sagittal reformations were obtained. Pulmonary embolism protocol was performed. IV CONTRAST: 100 cc of Isovue 370. RADIATION DOSE: Total DLP: 612.2 mGy*cm Estimated effective dose: (DLP x 0.014 x size factor) mSv COMPLICATIONS: None FINDINGS: LINES/ TUBES: Left-sided AICD device with leads in the right ventricle and coronary sinus. PULMONARY ARTERIES: There are segmental pulmonary emboli bilaterally, for example in the lingula on series 2, image 65 and left lower lobe on image 85. There is segmental/subsegmental pulmonary embolism in the right lower lobe on images 88 and 94. The main pulmonary artery is enlarged, measuring up to 4.1 cm. LUNGS AND AIRWAYS/PLEURA: The central airways are patent. There is biapical pleural-parenchymal opacity. There are moderate bilateral pleural effusions associated patchy atelectasis in the lower lobes. Scattered mild smooth interlobular septal thickening with associated patchy groundglass opacities, for example in the lower lobes on series 3, image 98. HEART AND MEDIASTINUM: The thyroid gland is normal. No mediastinal or axillary lymphadenopathy. Mildly enlarged right peribronchial lymph node measuring up to 1.1 cm, which may be reactive. There is moderate cardiomegaly. The RV to LV ratio is <1. No pericardial effusion. Ascending thoracic aortic aneurysm measuring up to 5 cm, incompletely evaluated due to phase of contrast. There are atherosclerotic calcifications within the thoracic aorta and coronary vessels. UPPER ABDOMEN: Limited views of the upper abdomen. Multiple bilateral hepatic cysts. Other subcentimeter hepatic hypodensities are too small to characterize. The left hepatic lobe appears atrophic. The partially visualized right kidney and adrenal gland appear unremarkable. Status post left nephrectomy. BONES/SOFT TISSUES: No acute osseous abnormality. No suspicious lytic or blastic lesions. IMPRESSION: Bilateral segmental/subsegmental pulmonary emboli. No lobar or main pulmonary emboli. No CT evidence of pulmonary infarct or right heart strain. Enlarged main pulmonary artery, suggestive of pulmonary hypertension. Cardiomegaly with moderate bilateral pleural effusions and pulmonary edema. Ascending thoracic aortic aneurysm, measuring up to 5 cm, incompletely evaluated due to the phase of contrast. Suggest follow-up CT angiogram for further evaluation. Status post left nephrectomy. Multiple bilateral liver cysts. Other subcentimeter hepatic hypodensities are too small to characterize and may represent cysts. Given the history of renal malignancy, comparison with prior imaging or dedicated abdominal CT or MRI is suggested for evaluation. The above findings were discussed with Dr. Muhammad, covering physician for Dr. Benjy Powell, in-person on 02/10/2019 at 12:15 PM, who responded indicating that the communication was understood. Signed by: Dr. Yessica Martinez MD on 02/10/2019 12:21 PM
== END ==
LOC: CT 10:17
PROVIDERS: ATTEND Internal Medicine Interventional Cardiology
DX: R06.00 Dyspnea, unspecified (principal); I26.99 Other pulmonary embolism without acute cor pulmonale
CPT/HCPCS: 36415; 71260; 82565; 84520; Q9967

== ENCOUNTER 2019-10-13 19:15 | Inpatient (IN) | payer MEDICARE ==
[~2019-10-13] VITALS: Ht 190.5 cm; Wt 100.8 kg
[~2019-10-13 19:15] MED LIST changes: +FERROUS SULFAT325 M1 PO; +FINASTERIDE5 MG PO; +METOPROLOL SUCC25 MG PO; +NITROGLYCERIN0.4 MG SL; +POTASSIUM CHLO10 ME1 PO; +XARELTO15 MG PO
--- OUTSIDE RECORDS SUMMARY | 2019-10-13 19:18 | XMS REPORT | Summary of Care ---
Author Author [facility] - Health Organization [facility] - Health Address Unknown Phone Unavailable Care Team Providers Care Nursing Manager Name Role Phone PCP Unavailable Encounter Details Care Team Description Date Type Department Doctor Unassigned, [place] [address] [place] [id number] 07/31/2019 Orders Only [facility] [address] [place] [address] Allergies Not on Filedocumented as of this encounter (statuses as of 07/31/2019) Medications Not on filedocumented as of this encounter (statuses as of 07/31/2019) Active Problems Not on filedocumented as of this encounter (statuses as of 07/31/2019) Social History Date Tobacco Use Types Packs/Day Years Used Never Assessed Sex Assigned at Date Recorded Not on file Industry Job Start Date Occupation Not on file Not on file Not on file Travel End Travel History Travel Start No recent travel history available. 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 08/31/2019 [place] [id number] [id number] Anesthesia, Clc Cardiac Cath 1, Clc Cardiac Proc Room Anesthesia, Clc Ep Lab 08/31/2019 Appointment Cardiac Electrophysiology Health Maintenance Due Date Last Done Comments DTaP,Tdap,and Td Vaccines 1960 (1 - Tdap) Zoster Recombinant 1991 Vaccine (SHINGRIX) (1 of 2) Medicare Wellness Visit 2006 PNEUMOCOCCAL VACCINES 65+ 2006 (1 of 2 - PCV13) INFLUENZA VACCINE (#1) 2019 documented as of this encounter Procedures Comments Procedure Name Priority Date/Time Associated Diagnosis EXTERNAL PROVIDER RECORDS Routine 07/31/2019 12:01 AM CDT documented in this encounter Results Not on filedocumented in this encounter Insurance Type Payer Benefit Subscriber ID Effective Phone Address Plan / Dates Group Medicare MEDICARE MEDICARE xxxxxxxxxx 2005-P [phone] [address] [id number] [place] [id number] documented as of this encounter
--- OUTSIDE RECORDS SUMMARY | 2019-10-13 19:18 | XMS REPORT | Summary of Care ---
Author Author Yaneli Cagle M.A. Unknown Address [facility] Phone Unavailable Care Team Providers Care Basting Cleaner Name Role Phone DORA Cleveland, FLORI Jain Unavailable MARYSE ALVAREZ GA, SCOTT BLOOD Unavailable Unavailable BERNABE FRANCIS MD Unavailable Unavailable MARYSE Cordero, SCOTT Unavailable Unavailable DORA BERMAN, FLORI Martinez Unavailable Unavailable MAMIEFatmata [place], THUY Unavailable Unavailable Unavailable Unavailable Functional Status Name Dates Details Functional status health issues are not documented Status: Name Dates Details Cognitive status health issues are not documented Status: Problems Name Dates Details History of Syncope and collapse (780.2, R55) Status: Resolved Colon cancer screening (V76.51, Z12.11) Status: Active At low risk for fall (V49.89, Z91.81) Status: Active Depression screening (V79.0, Z13.31) Status: Active Flu vaccine need (V04.81, Z23) Status: Active Onychomycosis of toenail (110.1, B35.1) Status: Active CKD (chronic kidney disease) stage 3, GFR 30-59 ml/min (585.3, N18.3) Status: Active Iron deficiency (280.9, E61.1) Status: Active OAB (overactive bladder) (596.51, N32.81) Status: Active Hyperlipemia, mixed (272.2, E78.2) Status: Active History of ventricular tachycardia (V12.59, Z86.79) Status: Resolved Essential hypertension (401.9, I10) Status: Active Arteriosclerosis of coronary artery (414.00, I25.10) Status: Active 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 * Refills: 0 Active Centrum Silver TABS TAKE 1 TABLET DAILY. * Refills: 0 Active Lipitor 10 MG Oral Tablet TAKE 1 TABLET DAILY DIRECTED. * Refills: 0 Active Aspirin 81 TBEC TAKE 1 TABLET DAILY DIRECTED. * Refills: 0 Active Fenofibrate Micronized 134 MG Oral Capsule TAKE 1 CAPSULE BY MOUTH DAILY WITH A MEAL. * Quantity: 90 Refills: 3 JOHN N.P., FLORI * Start : 20-Aug-2016 Active Losartan Potassium 100 MG Oral Tablet TAKE 1 TABLET DAILY. * Quantity: 90 Refills: 0 JOHN N.P., FLORI * Start : 26-May-2017 Active Xarelto 15 MG Oral Tablet TAKE 1 TABLET BY MOUTH EVERY DAY * Quantity: 30 Refills: 0 JOHN N.P., FLORI * Start : 26-May-2017 Active Ferrous Gluconate 324 (38 Fe) MG Oral Tablet TAKE 1 TABLET TWICE DAILY W/ 250 MG VIT C. * Quantity: 90 Refills: 1 JOHN N.P., FLORI * Start : 20-Sep-2018 Active Vitamin C 250 MG Oral Tablet Chewable CHEW AND SWALLOW 1 TABLET W.IRON TWICE DAILY. * Refills: 0 JOHN N.P., FLORI * Start : 20-Sep-2018 Active Allergies and Adverse Reactions Name Dates Details No Known Drug Allergies (Allergy) Status: Active Past Medical History Name Dates Details History of backache (V13.59, Z87.39) Status: Resolved History of Bacterial foodborne intoxication (005.9, A05.9) Status: Resolved History of hematuria (V13.09, Z87.448) Status: Resolved History of Infected sebaceous cyst of skin (706.2, L72.3) Status: Resolved History of Need for hepatitis C screening test (V73.89, Z11.59) Status: Resolved History of Noncompliance with treatment (V15.81, Z91.19) Status: Resolved History of Pain, upper back (724.5, M54.9) Status: Resolved History of pleurisy (V12.69, Z87.09) Status: Resolved History of pneumococcal vaccination (V49.89, Z92.29) Status: Resolved History of sebaceous cyst (V13.3, Z87.2) Status: Resolved History of Syncope and collapse (780.2, R55) Status: Resolved History of tinea corporis (V12.09, Z86.19) Status: Resolved History of ventricular tachycardia (V12.59, Z86.79) Status: Resolved History of vertigo (V12.49, Z87.898) Status: Resolved Procedures Procedure Dates Details History of Cardiovascular Stress Test Completed History of Tonsillectomy With Adenoidectomy Completed History of Nephrectomy Completed Kidney Surgery Immunization Name Dates Details Tdap (Adacel) on: 29-Nov-2012 Prevnar 13 Intramuscular Suspension Lot #: [id number] on: 04-Jul-2015 Fluzone High-Dose 0.5 ML Intramuscular Suspension Prefilled Syringe Lot #: [id number] on: 20-Aug-2016 Pneumovax 23 25 MCG/0.5ML Injection Injectable Lot #: [id number] on: 20-Aug-2016 Influenza, seasonal, injectable on: 16-Jul-2017 Fluzone High-Dose 0.5 ML Intramuscular Suspension Prefilled Syringe Lot #: [id number] on: 02-Sep-2018 Family History Name Dates Details Family history of Coronary Artery Disease (V17.49) Status: Active Family history of Acute Myocardial Infarction (V17.3) Status: Active Social History Name Dates Details - Status: Name Dates Details Never smoker Vital Signs Date Test Result Details [id number] BP Systolic 144 mm[Hg] Status: Comments: Location: LUE; Position: Sitting BP Diastolic 82 mm[Hg] Status: Comments: Location: LUE; Position: Sitting Height 75 in Status: Weight 209.0625 lb Status: Body Mass Index Calculated 26.13 kg/m2 Status: Body Surface Area Calculated 2.24 m2 Status: Temperature 97.9 f Status: Comments: Method: Temporal Heart Rate 60 /min Status: Respiration Rate 14 /min Status: Physical Findings 0 Status: Comments: Alcohol Screen - How many times in the past yr have you had 5 (for M) or 4 (for F) or 4 (for all > 65yrs) or more drinks in a day? Physical Findings 0 Status: Comments: PHQ-9 Adult Depression Screening Results Date Description Value Details :02 [] LIPID PANEL WITH REFLEX TO DIRECT LDL CHOLESTEROL, TOTAL 158 mg/dl (Normal) Range: <200 HDL CHOLESTEROL 49 mg/dl (Normal) Range: >40 TRIGLYCERIDES 61 mg/dl (Normal) Range: <150 LDL-CHOLESTEROL 94 {MG/DL__CAL} (Normal) Comments: Reference range: <100 Desirable range <100 mg/dL for primary prevention; <70 mg/dL for patients with CHD or diabetic patients with > or=2 CHD risk factors. LDL-C is now calculated using miriam Salazar calculation, which is a validated novel method providing better accuracy than the Friedewald equation in the estimation of LDL-C. Liban SS et al. BUD. 2013;310(19): 9207-9112 (http:/ /education.TrustEgg/faq/WOQ604) CHOL/HDLC RATIO 3.2 {CALC} (Normal) Range: <5.0 NON HDL CHOLESTEROL 109 {MG/DL__CAL} (Normal) Range: <130 Comments: For patients with diabetes plus 1 major ASCVD risk factor, treating to a non-HDL-C goal of <100 mg/dL (LDL-C of <70 mg/dL) is considered a therapeutic option. :02 [[facility]] CMP W/EGFR GLUCOSE 95 mg/dl (Normal) Range: 65-99 Comments: Fasting reference interval UREA NITROGEN (BUN) 18 mg/dl (Normal) Range: 7-25 CREATININE 1.28 mg/dl (Above high threshold) Range: 0.70-1.18 Comments: For patients >49 years of age, the reference limitfor Creatinine is approximately 13% higher for peopleidentified as -Prydeinig. eGFR NON- 53 {ML/MIN/1.7} (Below low threshold) Range: > OR=60 eGFR 62 {ML/MIN/1.7} (Normal) Range: > OR=60 BUN/CREATININE RATIO 14 {CALC} (Normal) Range: 6-22 SODIUM 139 mmol/L (Normal) Range: 135-146 POTASSIUM 4.6 mmol/L (Normal) Range: 3.5-5.3 CHLORIDE 103 mmol/L (Normal) Range: 98-110 CARBON DIOXIDE 29 mmol/L (Normal) Range: 20-32 CALCIUM 9.5 mg/dl (Normal) Range: 8.6-10.3 PROTEIN, TOTAL 6.3 g/dl (Normal) Range: 6.1-8.1 ALBUMIN 3.7 g/dl (Normal) Range: 3.6-5.1 GLOBULIN 2.6 {G/DL__CALC} (Normal) Range: 1.9-3.7 ALBUMIN/GLOBULIN RATIO 1.4 {CALC} (Normal) Range: 1.0-2.5 BILIRUBIN, TOTAL 0.6 mg/dl (Normal) Range: 0.2-1.2 ALKALINE PHSPHATASE 54 u/l (Normal) Range: 40-115 AST 18 u/l (Normal) Range: 10-35 ALT 14 u/l (Normal) Range: 9-46 21-Jul-20199:02 [[facility]] CBC (INCLUDES DIFF/PLT) WHITE BLOOD CELL COUNT 5.3 {Thousand/u} (Normal) Range: 3.8-10.8 RED BLOOD CELL COUNT 4.68 {Million/uL} (Normal) Range: 4.20-5.80 HEMAGLOBIN 13.1 g/dl (Below low threshold) Range: 13.2-17.1 HEMATOCRIT 39.9 % (Normal) Range: 38.5-50.0 MCV 85.3 fL (Normal) Range: 80.0-100.0 MCH 28.0 pg (Normal) Range: 27.0-33.0 MCHC 32.8 g/dl (Normal) Range: 32.0-36.0 RDW 16.3 % (Above high threshold) Range: 11.0-15.0 PLATELET COUNT 271 {Thousand/u} (Normal) Range: 140-400 MPV 10.5 fL (Normal) Range: 7.5-12.5 ABSOLUTE NEUTROPHILS 3562 {cells/uL} (Normal) Range: 9472-5936 ABSOLUTE LYMPHOCYTES 1092 {cells/uL} (Normal) Range: 850-3900 ABSOLUTE MONOCYTES 413 {cells/uL} (Normal) Range: 200-950 ABSOLUTE EOSINOPHILS 191 {cells/uL} (Normal) Range: 15-500 ABSOLUTE BASOPHILS 42 {cells/uL} (Normal) Range: 0-200 NEUTROPHILS 67.2 % (Normal) LYMPHOCYTES 20.6 % (Normal) MONOCYTES 7.8 % (Normal) EOSINOPHILS 3.6 % (Normal) BASOPHILS 0.8 % (Normal) 21-Jul-20199:02 [[facility]] TSH, 3RD GENERATION W/REFLEX TO FT4 Comments: REPORT COMMENT:FASTING:YES TSH, 3RD GENERATION W/REFLEX TO FT4 1.53 {MIU/L} (Normal) Range: 0.40-4.50 Plan of Care Name Dates Details Planned Observations Planned Goals not documented Interventions Provided Medication Changes* Xarelto 15 MG Oral Tablet - Renew Instructions Name Dates Details Instructions not documented Encounters Appointment; FLORI JOHN NP Encounter Diagnosis: Problem not documented On: 25-Aug-2017 7:30 Appointment; FLORI JOHN NP Encounter Diagnosis: Problem not documented On: 19-Apr-2018 7:30 Appointment; FLORI JOHN NP Encounter Diagnosis: Problem not documented On: 17-Aug-2018 8:00 Appointment; FLORI JOHN NP Encounter Diagnosis: Problem not documented On: 17-Aug-2018 8:00 Appointment; FLORI JOHN NP Encounter Diagnosis: Problem not documented On: 02-Sep-2018 8:00 Appointment; FLORI JOHN NP Encounter Diagnosis: Problem not documented On: 12-Jul-2019 13:30 Appointment; ARELI BARNES M.D. Encounter Diagnosis: Problem not documented On: 14-Jul-2019 11:00
[2019-10-13 19:54] LABS: BASOPHILS # (AUTO) 0.1 (0.0-0.1); BASOPHILS % 0.6 % (0.0-1.0); EOSINOPHILS # (AUTO) 0.1 (0.0-0.4); EOSINOPHILS % 1.2 % (0.0-6.0); HEMATOCRIT 40.1 % (38.2-49.6); HEMOGLOBIN 13.1 g/dL (14.0-18.0); LYMPHOCYTES # (AUTO) 0.8 (1.0-3.2); LYMPHOCYTES % 10.2 % (18.0-39.1); MEAN CORPUSCULAR HEMOGLOBIN 29.4 pg (28-32); MEAN CORPUSCULAR HGB CONC 32.7 g/dL (31-35); MEAN CORPUSCULAR VOLUME 89.9 fL (81-99); MONOCYTES # (AUTO) 0.5 (0.2-0.8); MONOCYTES % 6.5 % (4.4-11.3); NEUTROPHILS # (AUTO) 6.3 (2.1-6.9); NEUTROPHILS % 81.1 % (38.7-80.0); PLATELET COUNT 322 x10e3/uL (140-360); RED BLOOD COUNT 4.46 x10e6/uL (4.3-5.7); RED CELL DISTRIBUTION WIDTH 14.6 % (11.7-14.4)
[2019-10-13 20:04] LABS: INR 1.37; PROTHROMBIN TIME 17.5 seconds (11.9-14.5)
[2019-10-13 20:05] LABS: PARTIAL THROMBOPLASTIN TIME 33.4 seconds (23.8-35.5)
[2019-10-13 20:14] LABS: ALBUMIN 3.4 g/dL (3.5-5.0); ANION GAP 16.2 mmol/L (8-16); CALCIUM 9.5 mg/dL (8.4-10.2); CREATININE, SERUM 1.45 mg/dL (0.72-1.25); POTASSIUM 4.2 mmol/L (3.5-5.1)
[2019-10-13 20:20] LABS: CREATINE KINASE MB 1.7 ng/mL (0-5.0)
--- NOTE | 2019-10-13 20:41 | Diagnostic Imaging Report ---
EXAMINATION: CHEST SINGLE (NOT PORTABLE) INDICATION: Cough. COMPARISON: Chest radiograph and CT chest 02/10/2019. FINDINGS: TUBES and LINES: Left-sided AICD device with leads in unchanged position. LUNGS: Moderate lung volumes. There are perihilar and interstitial opacities. There are patchy opacities at the lung bases. PLEURA: Small bilateral pleural effusions. No evidence of pneumothorax. HEART AND MEDIASTINUM: The cardiomediastinal silhouette is mildly enlarged. Atherosclerotic calcifications of the aortic arch. BONES AND SOFT TISSUES: No acute osseous abnormality. UPPER ABDOMEN: No free air under the diaphragm. IMPRESSION: Mild pulmonary interstitial edema with small bilateral pleural effusions. Patchy opacities at the lung bases, which may represent atelectasis, although pneumonia is possible in the appropriate clinical setting. Signed by: Dr. Yessica Martinez MD on 10/13/2019 8:38 PM
[2019-10-13] MEDS ORDERED: SODIUM CHLORIDE FLUSH 10 ML SYR INJ PRN (21:15)
[2019-10-13] MEDS ORDERED: HYDRALAZINE HCL 20 MG/ML VIAL IV PRN (21:15)
[2019-10-13] MEDS: FUROSEMIDE INJ 10 MG/ML 4 ML VIAL IV SCH (21:36)
--- NOTE | 2019-10-13 21:45 | NUR ---
PLACED ON 2L OF OXYGEN
--- NOTE | 2019-10-13 22:00 | NUR ---
REPORT CALLED TO TERRELL FORDE FOR THIS PT. TO GO TO RM [id number]
[2019-10-13 22:45] VITALS: BP 139/98
[2019-10-14] VITALS (8 sets, daily range): BP systolic 137–177; BP diastolic 70–98
[2019-10-14] MEDS ORDERED: XARELTO10 MG PO (00:54)
[2019-10-14] MEDS ORDERED: NITROGLYCERIN 0.4 MG SUBL SL PRN (05:30)
--- NOTE | 2019-10-14 07:19 | NUR ---
RCD PT AT BED PT IS ALERT AND ORIENTED RESTING ON BED IV PATENT BY SALINE FLUSH BED LOW AND LOCKED CALL LIGHT IN REACH
[2019-10-14 07:34] LABS: CREATINE KINASE MB 1.5 ng/mL (0-5.0)
[2019-10-14] MEDS: POTASSIUM CHLORIDE 10MEQ EA PO SCH (08:51)
[2019-10-14] MEDS: LOSARTAN POTASSIUM 25 MG TAB PO SCH (08:51)
[2019-10-14] MEDS: FUROSEMIDE INJ 10 MG/ML 4 ML VIAL IV SCH ×2 (08:51→21:15)
[2019-10-14] MEDS: PAROXETINE HCL 20 MG TAB PO SCH (08:51)
[2019-10-14] MEDS: ATORVASTATIN 10 MG TAB PO SCH (08:51)
[2019-10-14] MEDS: RIVAROXABAN 15 MG TABLET PO SCH (08:52)
[2019-10-14] MEDS: FINASTERIDE 5 MG TAB PO SCH (08:52)
[2019-10-14] MEDS: METOPROLOL SUCCINATE 25 MG TAB XL PO SCH (08:52)
[2019-10-14] MEDS ORDERED: RIVAROXABAN 10 MG TABLET PO SCH (09:00)
--- NOTE | 2019-10-14 14:18 | NUR ---
YRNE explained to patient, patient signed, copy to patient, original to chart
--- NOTE | 2019-10-14 16:25 | Consultation ---
DATE OF CONSULTATION: 10/14/2019 Cardiology Consult REASON FOR CONSULT: [id number] CHF exacerbation. CHIEF COMPLAINT: Shortness of breath. HISTORY OF PRESENT ILLNESS: The patient is a 79-year-old man, who is well known to our service. He has history of chronic systolic heart failure, ischemic cardiomyopathy, status post stent placement in the past, status post ICD placement in the past, history of atrial fibrillation, status post Watchman device. He presents with worsening shortness of breath, cough, and phlegm production. Says he has been compliant with medications and has not had any major dietary changes recently, however, he does not weigh himself regularly at home and is not sure if he is taking any diuretics. REVIEW OF SYSTEMS: As above, otherwise negative. PAST MEDICAL HISTORY: 1. Hypertension. 2. Hyperlipidemia. 3. Chronic systolic heart failure. 4. Coronary artery disease, status post coronary stent placement. 5. Status post ICD placement. 6. Atrial fibrillation, status post Watchman device. SOCIAL HISTORY: Does not smoke, drink, or abuse drugs. FAMILY HISTORY: Noncontributory. OUTPATIENT MEDICATIONS: Reviewed. Please see MAR. ALLERGIES: NO KNOWN DRUG ALLERGIES. PHYSICAL EXAMINATION: VITAL SIGNS: Temperature afebrile, pulse 85, respiratory rate 18, blood pressure 137/87, and saturating 94% on 2 L nasal cannula. GENERAL: Well-developed, well-nourished, no acute distress. CARDIOVASCULAR: Regular rate and rhythm. No murmurs, rubs, or gallops. LUNGS: Fine crackles bilateral bases. ABDOMEN: Soft, nontender, and nondistended. NEURO AND PSYCH: Alert and oriented to person, place, and time. Normal affect. INPATIENT MEDICATIONS: Reviewed. LABORATORY DATA: Reviewed. Troponins negative x2. BNP of 1296. IMAGING DATA: Reviewed. Chest x-ray shows mild pulmonary interstitial edema with bilateral pleural effusions. TELEMETRY DATA: Reviewed. Shows paced rhythm. ASSESSMENT AND PLAN: 1. Zvqxd-[id number] systolic heart failure exacerbation. 2. Coronary artery disease, status post stent placement in the past. 3. Atrial fibrillation, on anticoagulation, status post recent Watchman device placement. PLAN: Continue IV furosemide. The patient is feeling much better already. Plan to change to oral diuretics tomorrow and possible discharge home. Continue home cardiovascular medications otherwise. Thank you for this consult. We will continue to follow. MD ADRIAN Hinson /[id number]
[2019-10-14 16:37] LABS: CREATINE KINASE MB 1.3 ng/mL (0-5.0)
--- NOTE | 2019-10-14 18:34 | NUR ---
Nutrition Screen Note RD Recommendation for Physician: Continue diet as ordered Plan of Care: RD following, monitoring for tolerance and adequacy Nutrition reason for involvement: Primary Diagnosis of CHF Primary Diagnose(s): CHF PMH: Hyperlipidemia HTN, COPD, Afib Ht:75 in Wt:222.19lb BMI:27.8 kg/m2 IBW:196lb +/-10% RD Assessment: (10/14/2019) Chart reviewed. Labs and meds reviewed. Initial encounter with patient. Pt denies any difficulty chewing or swallowing nor has any N,V,D. Pt is eating well. Pt has no known food allergies. No significant wt changes. Current Diet: Cardiac diet Malnutrition Evaluation (10/14/2019) The patient does not meet criteria for a specified degree of malnutrition at this time. Will re-evaluate at follow-up as appropriate. Diet Education Needs Assessment: Diet education indicated, but pt refused because he is familiar with a low sodium diet. Nutrition Care Level: Low Signed: Zheng Kerns RD, LD, [facility]
--- NOTE | 2019-10-14 18:50 | NUR ---
PT RESTING ON BED BED SIDE REPORT GIVEN TO ONCOMING NURSE
[2019-10-15] VITALS: BP 157/95
[2019-10-15 04:00] VITALS: BP 157/97
[2019-10-15 05:49] LABS: BASOPHILS # (AUTO) 0.1 (0.0-0.1); BASOPHILS % 1.1 % (0.0-1.0); EOSINOPHILS # (AUTO) 0.2 (0.0-0.4); EOSINOPHILS % 3.3 % (0.0-6.0); HEMATOCRIT 41.8 % (38.2-49.6); HEMOGLOBIN 13.7 g/dL (14.0-18.0); LYMPHOCYTES # (AUTO) 1.1 (1.0-3.2); LYMPHOCYTES % 17.2 % (18.0-39.1); MEAN CORPUSCULAR HEMOGLOBIN 29.2 pg (28-32); MEAN CORPUSCULAR HGB CONC 32.8 g/dL (31-35); MEAN CORPUSCULAR VOLUME 89.1 fL (81-99); MONOCYTES # (AUTO) 0.6 (0.2-0.8); MONOCYTES % 9.4 % (4.4-11.3); NEUTROPHILS # (AUTO) 4.4 (2.1-6.9); NEUTROPHILS % 68.7 % (38.7-80.0); PLATELET COUNT 293 x10e3/uL (140-360); RED BLOOD COUNT 4.69 x10e6/uL (4.3-5.7); RED CELL DISTRIBUTION WIDTH 14.5 % (11.7-14.4)
[2019-10-15 06:02] LABS: ALBUMIN 3.3 g/dL (3.5-5.0); ANION GAP 17.4 mmol/L (8-16); CALCIUM 9.7 mg/dL (8.4-10.2); CREATININE, SERUM 1.45 mg/dL (0.72-1.25); MAGNESIUM 1.8 MG/DL (1.3-2.1); POTASSIUM 3.4 mmol/L (3.5-5.1)
--- NOTE | 2019-10-15 06:24 | NUR ---
Discussed pt status w/ Dr. Sales earlier, and received order for Inpatient.
--- NOTE | 2019-10-15 07:00 | NUR ---
RCD PT AT BED PT IS ALERT AND ORIENTED PT RESTING ON BED IV PATENT BED LOW AND LOCKED CALL LIGHT IN REACH
[2019-10-15 08:18] VITALS: BP 143/100
[2019-10-15] MEDS: FINASTERIDE 5 MG TAB PO SCH (09:00)
[2019-10-15] MEDS: LOSARTAN POTASSIUM 25 MG TAB PO SCH (09:00)
[2019-10-15] MEDS: POTASSIUM CHLORIDE 10MEQ EA PO SCH (09:00)
[2019-10-15] MEDS: ATORVASTATIN 10 MG TAB PO SCH (09:00)
[2019-10-15] MEDS: FUROSEMIDE INJ 10 MG/ML 4 ML VIAL IV SCH (09:00)
[2019-10-15] MEDS: PAROXETINE HCL 20 MG TAB PO SCH (09:00)
[2019-10-15] MEDS: RIVAROXABAN 15 MG TABLET PO SCH (09:00)
[2019-10-15] MEDS: METOPROLOL SUCCINATE 25 MG TAB XL PO SCH (09:00)
[2019-10-15 09:02] VITALS: BP 143/100
--- NOTE | 2019-10-15 11:29 | Progress Note ---
DATE: 10/15/2019 Cardiology Progress Note SUBJECTIVE: No major events overnight. Feels much better. OBJECTIVE: VITAL SIGNS: Temperature afebrile, pulse 87, respiratory rate 16, blood pressure 143/100, and saturating 97% on 2 L nasal cannula. GENERAL: Well-developed, well-nourished, in no acute distress. CARDIOVASCULAR: Regular rate and rhythm. No murmurs, rubs, or gallops. LUNGS: Clear to auscultation bilaterally. ABDOMEN: Soft, nontender, and nondistended. NEURO AND PSYCH: Alert and oriented to person, place, and time. Normal affect. INPATIENT MEDICATIONS: Reviewed. LABORATORY DATA: Reviewed. TELEMETRY DATA: Reviewed. Shows paced rhythm. ASSESSMENT AND PLAN: 1. Okavb-ph-iqqrriz systolic heart failure exacerbation. 2. Coronary artery disease, status post stent placement in the past. 3. Atrial fibrillation, on anticoagulation, status post recent Watchman device placed. PLAN: The patient is looking much better today. Okay to be discharged home. We will add 40 mg of p.o. Lasix to home regimen. Otherwise, continue outpatient medical therapy. Thank you for this consult. We will continue to follow. MD XIOMY Hinson/LOIS /[id number]
--- NOTE | 2019-10-15 11:59 | Progress Note ---
DATE: SUBJECTIVE: The patient feels better with less complaints this morning. Feels like his shortness of breath has improved. OBJECTIVE: VITAL SIGNS: Temperature 96.6, pulse 83, blood pressure 157/95, and saturations 96%. GENERAL: He is in no apparent distress, lying in bed. LUNGS: Decreased breath sounds bilaterally, but does seem to have better airway movement since yesterday. CARDIOVASCULAR: Regular rate and rhythm. EXTREMITIES: No clubbing or cyanosis. NEUROLOGIC: Nonfocal. ABDOMEN: Good bowel sounds. Soft and nontender. ASSESSMENT AND PLAN: 1. Hypertension. Continue with current care. 2. Coronary artery disease. Continue with current care per Cardiology. 3. Benign prostatic hypertrophy. Continue with finasteride. 4. Hyperlipidemia. Continue with his cholesterol medicine. Please see hospital chart for full details. MD MIKALA Sanchez/LOIS /[id number]
[2019-10-15 12:30] VITALS: BP 150/92
--- NOTE | 2019-10-15 13:00 | NUR ---
A/C TO CARDIOLOGY PT CAN GO HOME IF OK WITH DR SHORT PAGED AND NOTIFIED DR SHORT GOT THE DISCHARGE ORDER
[2019-10-15] MEDS ORDERED: FUROSEMIDE40 MG PO (13:40)
--- NOTE | 2019-10-15 14:21 | NUR ---
PT WENT HOME IN SAFE CONDITION WITH HIS
== END 2019-10-15 14:53 | disposition home or self-care (01) | DRG 292 ==
LOC: ER 19:15 → ERHOLD 21:48 → MED/SURG2 22:45 → OBSVTOIN 10-15 05:57
PROVIDERS: ADMIT Internal Medicine; ATTEND Internal Medicine
DX: I11.0 Hypertensive heart disease with heart failure (principal); I48.20 Chronic atrial fibrillation, unspecified; E78.5 Hyperlipidemia, unspecified; I50.23 Acute on chronic systolic (congestive) heart failure; I25.10 Atherosclerotic heart disease of native coronary artery without angina pectoris; Z95.5 Presence of coronary angioplasty implant and graft; Z79.01 Long term (current) use of anticoagulants; N40.0 Benign prostatic hyperplasia without lower urinary tract symptoms; Z95.810 Presence of automatic (implantable) cardiac defibrillator
CPT/HCPCS: 36415; 71045; 80053; 82550; 82553; 83735; 83880; 84484; 85025; 85610; 85730; 93005; 93306; 99284; G0378; J0360; J1940

== ENCOUNTER → 2019-10-17 | Day surgery (SDC) | payer MEDICARE ==
[2019-10-11 10:18] LABS: BASOPHILS # (AUTO) 0.1 (0.0-0.1); EOSINOPHILS # (AUTO) 0.2 (0.0-0.4); EOSINOPHILS % 2.6 % (0.0-6.0); HEMATOCRIT 39.7 % (38.2-49.6); HEMOGLOBIN 12.6 g/dL (14.0-18.0); LYMPHOCYTES # (AUTO) 1.3 (1.0-3.2); LYMPHOCYTES % 21.5 % (18.0-39.1); MEAN CORPUSCULAR HEMOGLOBIN 28.9 pg (28-32); MEAN CORPUSCULAR HGB CONC 31.7 g/dL (31-35); MEAN CORPUSCULAR VOLUME 91.1 fL (81-99); MONOCYTES # (AUTO) 0.4 (0.2-0.8); MONOCYTES % 6.9 % (4.4-11.3); NEUTROPHILS # (AUTO) 4.1 (2.1-6.9); NEUTROPHILS % 67.7 % (38.7-80.0); PLATELET COUNT 318 x10e3/uL (140-360); RED BLOOD COUNT 4.36 x10e6/uL (4.3-5.7); RED CELL DISTRIBUTION WIDTH 14.6 % (11.7-14.4)
[2019-10-11 10:42] LABS: ALBUMIN 3.5 g/dL (3.5-5.0); ALBUMIN/GLOBULIN RATIO 1.1 (0.8-2.0); ANION GAP 12.3 mmol/L (8-16); CALCIUM 9.5 mg/dL (8.4-10.2); CREATININE, SERUM 1.61 mg/dL (0.72-1.25); POTASSIUM 4.3 mmol/L (3.5-5.1)
[~2019-10-17] VITALS: Ht 190.5 cm; Wt 99.8 kg
[~2019-10-17] MED LIST changes: +BENZOCAINE 20% SPR 60 ML CAN ONE; +FUROSEMIDE40 MG PO; +LIDOCAINE HCL 2% LOCAL INJ 5 ML SDV VIAL INJ ONE; +PROPOFOL IV EMULSION 10 MG/ML 20 ML VIAL ONE; +SODIUM CHLORIDE 0.9% 1000ML 1,000 ML ONE; +XARELTO10 MG PO
[2019-10-17 07:21] VITALS: BP 143/94
[2019-10-17 09:05] VITALS: BP 86/57
--- NOTE | 2019-10-17 09:10 | NUR ---
PROCEDURE NOTE- 0843- ROOM TIME, MONITORS HOOKED TO PT AND ANESTHESIA AT BEDSIDE ASSESSING PT. 0848- TIME OUT PERFORMED WITH ALL PARTICIPATING STAFF. ALL AGREE. PT DENTURES REMOVED AND HURRICAINE SPRAY X2 0853- SCOPE IN 0900- SCOPE OUT 0905- PT BROUGHT TO CATH RECOVERY BAY 9 WITH ANESTHESIA AT BEDSIDE. FULL REPORT REC FROM [facility]. PT TOLERATED PROCEDURE WELL.
[2019-10-17 09:20] VITALS: BP 81/53
[2019-10-17 09:30] VITALS: BP 121/80
--- NOTE | 2019-10-17 09:30 | NUR ---
0930am Bedside report received from Alina TEJADA. Alert oriented and appropriate, PERRLA, respirations even and unlabored to room air. Pulses x4 extremities equal and strong. Pedal pulses PT/DP X4 and marked. Cap fill brisk < 3 sec. s/p DAYSI profafol used by Sami Fuller report dc home when back to baseline orientation. NPO till 1100am f/o 2wks Dr Powell. Skin warm and dry integrity appears D/I. IV 20g to left hand, presents healthy w/o s/s of infiltration or complaint. Abdomen soft and supple. pt offered toileting, denies need to urinate or defecate. No personal affects with patient. Family [phone]. Pt and family verbalizes understanding of POC. Currently w/o complaint of pain or need. estrella/keaton Addendum: 10/17/19 at 1036 by Lin Montalvo RN 0930 may dc pt home when fully awake. DR Powell will speak with pt. anil
[2019-10-17 09:45] VITALS: BP 126/73
[2019-10-17 10:00] VITALS: BP 129/77
--- NOTE | 2019-10-17 10:00 | NUR ---
1000am Pt meets DC criteria.Back to baseline orinetation Dr Powell spoke with and ok for dc aware to f/o 2wksStoparalto [id number] daily. Buccal area assessed for s/s of complication and presence of hematoma. Skin warm, dry, no discolor, and pulses present. IV removed from rt hand Distal tip appears intact. VS WNL. Pt denies pain, sob, or need at this time. Family at bedside Aware importance to f/o 2wks and no intake food or water till 11am. Review of discharge paperwork and follow up instructions. verbalized understanding. Pt to wheelchair and transported to front of hospital. Transferred to private vehicle under own strength w/o incident with DC paperwork in hand. -ds/rn
== END | disposition home or self-care (01) ==
LOC: OR 06:28
PROVIDERS: ATTEND Internal Medicine Interventional Cardiology
DX: I48.0 Paroxysmal atrial fibrillation (principal); Z95.818 Presence of other cardiac implants and grafts; I25.118 Atherosclerotic heart disease of native coronary artery with other forms of angina pectoris; I13.0 Hypertensive heart and chronic kidney disease with heart failure and stage 1 through stage 4 chronic kidney disease, or unspecified chronic kidney disease; N18.9 Chronic kidney disease, unspecified; I50.22 Chronic systolic (congestive) heart failure; Z01.812 Encounter for preprocedural laboratory examination; Z79.02 Long term (current) use of antithrombotics/antiplatelets; Z95.810 Presence of automatic (implantable) cardiac defibrillator
CPT/HCPCS: 36415; 80053; 85025; 93312; 93320; 93325; J2001; J2704; J7030

== ENCOUNTER 2021-05-30 19:50 | Emergency (ER) | payer MEDICARE ==
[~2021-05-30] VITALS: Ht 190.5 cm; Wt 99.8 kg
[~2021-05-30 19:50] MED LIST changes: -BENZOCAINE 20% SPR 60 ML CAN ONE; -LIDOCAINE HCL 2% LOCAL INJ 5 ML SDV VIAL INJ ONE; -PROPOFOL IV EMULSION 10 MG/ML 20 ML VIAL ONE; -SODIUM CHLORIDE 0.9% 1000ML 1,000 ML ONE
[2021-05-30 21:33] VITALS: BP 213/112
== END 2021-05-30 21:33 | disposition left against medical advice (07) ==
LOC: FSED 21:00
DX: R33.9 Retention of urine, unspecified (principal); N40.1 Benign prostatic hyperplasia with lower urinary tract symptoms; N13.8 Other obstructive and reflux uropathy; Z85.528 Personal history of other malignant neoplasm of kidney; Z85.038 Personal history of other malignant neoplasm of large intestine; Z95.5 Presence of coronary angioplasty implant and graft; Z95.810 Presence of automatic (implantable) cardiac defibrillator
CPT/HCPCS: 99282

== ENCOUNTER → 2022-01-14 | Outpatient (CLI) | payer MEDICARE | LOC: CT 09:56 | PROVIDERS: ATTEND Radiology Neuroradiology | DX: G31.84 Mild cognitive impairment of uncertain or unknown etiology (principal) | CPT/HCPCS: 70450 ==

== ENCOUNTER 2022-07-02 09:56 | Inpatient (IN) | payer MEDICARE ==
[~2022-07-02] VITALS: Ht 190.5 cm; Wt 104.3 kg
[2022-07-02 11:06] LABS: BASOPHILS % 0.5 % (0.0-1.0); EOSINOPHILS # (AUTO) 0.1 (0.0-0.4); EOSINOPHILS % 0.8 % (0.0-6.0); HEMATOCRIT 39.9 % (38.2-49.6); HEMOGLOBIN 13.3 g/dL (14.0-18.0); LYMPHOCYTES # (AUTO) 0.7 (1.0-3.2); LYMPHOCYTES % 11.2 % (18.0-39.1); MEAN CORPUSCULAR HEMOGLOBIN 31.4 pg (28-32); MEAN CORPUSCULAR HGB CONC 33.3 g/dL (31-35); MEAN CORPUSCULAR VOLUME 94.1 fL (81-99); MONOCYTES # (AUTO) 0.4 (0.2-0.8); MONOCYTES % 7.2 % (4.4-11.3); NEUTROPHILS # (AUTO) 4.8 (2.1-6.9); PLATELET COUNT 220 x10e3/uL (140-360); RED BLOOD COUNT 4.24 x10e6/uL (4.3-5.7); RED CELL DISTRIBUTION WIDTH 15.1 % (11.7-14.4)
[2022-07-02 11:30] LABS: ALBUMIN/GLOBULIN RATIO 0.9 (0.8-2.0); ANION GAP 13.4 mmol/L (8-16); CALCIUM 8.8 mg/dL (8.4-10.2); CREATININE, SERUM 1.37 mg/dL (0.72-1.25); POTASSIUM 3.4 mmol/L (3.5-5.1)
[2022-07-02] MEDS ORDERED: ONDANSETRON HCL INJ 2MG/ML 2ML 2 MG/ML VIAL IV PRN (12:45)
[2022-07-02] MEDS ORDERED: ACETAMINOPHEN 325 MG TAB PO PRN (12:45)
[2022-07-02] MEDS ORDERED: FUROSEMIDE INJ 10 MG/ML 4 ML VIAL IV SCH (13:00)
[2022-07-02] MEDS: FUROSEMIDE INJ 10 MG/ML 4 ML VIAL IV SCH ×2 (13:25→22:16)
[2022-07-02 21:21] VITALS: BP 139/104
[2022-07-02 21:53] VITALS: BP 139/104
[2022-07-03] VITALS (7 sets, daily range): BP systolic 126–153; BP diastolic 85–101
[2022-07-03 06:03] LABS: BASOPHILS % 0.3 % (0.0-1.0); HEMATOCRIT 40.1 % (38.2-49.6); HEMOGLOBIN 13.3 g/dL (14.0-18.0); LYMPHOCYTES # (AUTO) 0.7 (1.0-3.2); LYMPHOCYTES % 9.2 % (18.0-39.1); MEAN CORPUSCULAR HEMOGLOBIN 31.4 pg (28-32); MEAN CORPUSCULAR HGB CONC 33.2 g/dL (31-35); MEAN CORPUSCULAR VOLUME 94.6 fL (81-99); MONOCYTES # (AUTO) 0.6 (0.2-0.8); MONOCYTES % 7.8 % (4.4-11.3); NEUTROPHILS # (AUTO) 5.8 (2.1-6.9); NEUTROPHILS % 82.3 % (38.7-80.0); PLATELET COUNT 215 x10e3/uL (140-360); RED BLOOD COUNT 4.24 x10e6/uL (4.3-5.7)
[2022-07-03 06:31] LABS: CALCIUM 9.1 mg/dL (8.4-10.2); CREATININE, SERUM 1.55 mg/dL (0.72-1.25)
[2022-07-03] MEDS: FUROSEMIDE INJ 10 MG/ML 4 ML VIAL IV SCH (07:15)
[2022-07-03] MEDS ORDERED: NON-FORMULARY MEDICATION (Mu-Vits-Min Th/Lycopene/Lutein (Centrum Silver Tablet) 1 TAB) PO SCH (09:00)
[2022-07-03] MEDS ORDERED: RIVAROXABAN 10 MG TABLET PO SCH (09:00)
[2022-07-03] MEDS: FENOFIBRATE 50 MG PO SCH (09:00)
[2022-07-03] MEDS ORDERED: POTASSIUM CHLORIDE 10MEQ EA PO SCH (09:00)
[2022-07-03] MEDS: RIVAROXABAN 15 MG TABLET PO SCH (09:36)
[2022-07-03] MEDS: METOPROLOL SUCCINATE 25 MG TAB XL PO SCH (09:38)
[2022-07-03] MEDS: MULTIVITAMINS/MINERALS TAB PO SCH (09:38)
[2022-07-03] MEDS: ATORVASTATIN 10 MG TAB PO SCH (09:38)
[2022-07-03] MEDS: FINASTERIDE 5 MG TAB PO SCH (09:38)
[2022-07-03] MEDS: PAROXETINE HCL 20 MG TAB PO SCH (09:38)
[2022-07-03] MEDS: BUMETANIDE INJ 0.25MG/ML 4ML VIAL IV SCH ×2 (15:33→21:28)
[2022-07-03 22:12] LABS: CLARITY,URINE SL CLOUDY (CLEAR); COLOR,URINE AMBER (YELLOW); KETONES,URINE NEGATIVE (NEGATIVE); LEUKOCYTE ESTERASE ,URINE TRACE (NEGATIVE); NITRITE,URINE NEGATIVE (NEGATIVE); PROTEIN,URINE DIPSTICK 1+ (NEGATIVE)
[2022-07-03 22:15] LABS: AMORPHOUS SEDIMENT,URINE MODERATE (FEW); BACTERIA,URINE FEW /HPF; EPITHELIAL CELLS,URINE FEW /LPF; RBC,URINE >50 /HPF (0-5)
[2022-07-03 22:32] LABS: CREATININE,URINE RANDOM 109.67 mg/dL (63-166)
[2022-07-04] VITALS (8 sets, daily range): BP systolic 131–146; BP diastolic 79–99
[2022-07-04 05:54] LABS: ALBUMIN/GLOBULIN RATIO 0.9 (0.8-2.0); ANION GAP 18.7 mmol/L (8-16); CALCIUM 9.2 mg/dL (8.4-10.2); CREATININE, SERUM 1.67 mg/dL (0.72-1.25); POTASSIUM 3.7 mmol/L (3.5-5.1)
[2022-07-04] MEDS: BUMETANIDE INJ 0.25MG/ML 4ML VIAL IV SCH ×3 (06:30→22:09)
[2022-07-04] MEDS: FENOFIBRATE 50 MG PO SCH (09:00)
[2022-07-04] MEDS: PAROXETINE HCL 20 MG TAB PO SCH (09:10)
[2022-07-04] MEDS: FINASTERIDE 5 MG TAB PO SCH (09:10)
[2022-07-04] MEDS: MULTIVITAMINS/MINERALS TAB PO SCH (09:11)
[2022-07-04] MEDS: METOPROLOL SUCCINATE 25 MG TAB XL PO SCH (09:11)
[2022-07-04] MEDS: METOLAZONE 5 MG TAB PO SCH (09:12)
[2022-07-04] MEDS: ATORVASTATIN 10 MG TAB PO SCH (09:12)
[2022-07-04] MEDS: RIVAROXABAN 15 MG TABLET PO SCH (09:12)
[2022-07-04] MEDS ORDERED: POTASSIUM CHLORIDE 20 MEQ TAB CR PO NR ×2 (13:30→14:00)
[2022-07-05] VITALS (8 sets, daily range): BP systolic 98–145; BP diastolic 62–74
[2022-07-05] MEDS: BUMETANIDE INJ 0.25MG/ML 4ML VIAL IV SCH ×4 (06:12→21:38)
[2022-07-05 06:34] LABS: ANION GAP 17.7 mmol/L (8-16); CREATININE, SERUM 1.74 mg/dL (0.72-1.25)
[2022-07-05 06:42] LABS: POTASSIUM 2.7 mmol/L (3.5-5.1)
[2022-07-05] MEDS ORDERED: POTASSIUM CHLORIDE 20 MEQ TAB CR PO STA (06:45)
[2022-07-05] MEDS: ATORVASTATIN 10 MG TAB PO SCH ×2 (08:59→21:38)
[2022-07-05] MEDS: FENOFIBRATE 50 MG PO SCH (09:00)
[2022-07-05] MEDS: MULTIVITAMINS/MINERALS TAB PO SCH (09:24)
[2022-07-05] MEDS: PAROXETINE HCL 20 MG TAB PO SCH (09:24)
[2022-07-05] MEDS: FINASTERIDE 5 MG TAB PO SCH (09:24)
[2022-07-05] MEDS: RIVAROXABAN 15 MG TABLET PO SCH (09:25)
[2022-07-05] MEDS: METOPROLOL SUCCINATE 25 MG TAB XL PO SCH (09:25)
[2022-07-05] MEDS ORDERED: POTASSIUM CHLORIDE 10MEQ EA PO NR (11:15)
[2022-07-05] MEDS: METOLAZONE 5 MG TAB PO SCH (12:07)
[2022-07-06] VITALS (7 sets, daily range): BP systolic 99–146; BP diastolic 66–87
[2022-07-06 06:16] LABS: ANION GAP 17.5 mmol/L (8-16); CALCIUM 9.4 mg/dL (8.4-10.2); CREATININE, SERUM 1.6 mg/dL (0.72-1.25)
[2022-07-06 06:21] LABS: POTASSIUM 2.5 mmol/L (3.5-5.1)
[2022-07-06] MEDS: BUMETANIDE INJ 0.25MG/ML 4ML VIAL IV SCH (06:31)
[2022-07-06] MEDS ORDERED: POTASSIUM CHLORIDE 20 MEQ TAB CR PO ONE (06:55)
[2022-07-06] MEDS ORDERED: SODIUM CHLORIDE 0.9% 500ML 500 ML ONE (08:25)
[2022-07-06] MEDS: POTASSIUM CHLORIDE 20MEQ/100ML 100 ML IV SCH ×2 (08:53→12:32)
[2022-07-06] MEDS: FENOFIBRATE 50 MG PO SCH (08:54)
[2022-07-06] MEDS: METOLAZONE 5 MG TAB PO SCH (08:55)
[2022-07-06] MEDS: MULTIVITAMINS/MINERALS TAB PO SCH (08:55)
[2022-07-06] MEDS: METOPROLOL SUCCINATE 25 MG TAB XL PO SCH (08:55)
[2022-07-06] MEDS: RIVAROXABAN 15 MG TABLET PO SCH (08:55)
[2022-07-06] MEDS: FINASTERIDE 5 MG TAB PO SCH (08:55)
[2022-07-06] MEDS: PAROXETINE HCL 20 MG TAB PO SCH (08:55)
[2022-07-06] MEDS ORDERED: ONDANSETRON HCL 4 MG ORAL DISINTEGRATING TAB PO PRN (11:45)
[2022-07-06] MEDS: SPIRONOLACTONE 25 MG TAB PO SCH (16:48)
[2022-07-06] MEDS: ATORVASTATIN 10 MG TAB PO SCH (21:30)
[2022-07-07] VITALS (7 sets, daily range): BP systolic 92–126; BP diastolic 69–83
[2022-07-07 06:25] LABS: ALBUMIN 2.7 g/dL (3.5-5.0); ALBUMIN/GLOBULIN RATIO 0.9 (0.8-2.0); ANION GAP 17.8 mmol/L (8-16); CALCIUM 9.4 mg/dL (8.4-10.2); CREATININE, SERUM 1.66 mg/dL (0.72-1.25); MAGNESIUM 1.8 MG/DL (1.3-2.1); PHOSPHORUS 2.7 MG/DL (2.3-4.7)
[2022-07-07 06:30] LABS: POTASSIUM 2.8 mmol/L (3.5-5.1)
[2022-07-07] MEDS: FENOFIBRATE 50 MG PO SCH (09:00)
[2022-07-07] MEDS: METOPROLOL SUCCINATE 25 MG TAB XL PO SCH (09:00)
[2022-07-07] MEDS ORDERED: MAGNESIUM SULFATE 2GM/50ML 50 ML IV ONE (09:15)
[2022-07-07] MEDS ORDERED: POTASSIUM CHLORIDE 20MEQ/100ML 300 ML IV ONE (09:15)
[2022-07-07] MEDS: MULTIVITAMINS/MINERALS TAB PO SCH (09:37)
[2022-07-07] MEDS: RIVAROXABAN 15 MG TABLET PO SCH (09:37)
[2022-07-07] MEDS: SPIRONOLACTONE 25 MG TAB PO SCH ×2 (09:38→17:19)
[2022-07-07] MEDS: PAROXETINE HCL 20 MG TAB PO SCH (09:38)
[2022-07-07] MEDS: FINASTERIDE 5 MG TAB PO SCH (09:38)
[2022-07-07] MEDS: METOLAZONE 5 MG TAB PO SCH (09:39)
[2022-07-07 14:05] LABS: CREATININE,URINE RANDOM 34.74 mg/dL (63-166); TOTAL PROTEIN, URINE 13.3 mg/dL (1-14)
[2022-07-07 20:19] LABS: ANION GAP 17.4 mmol/L (8-16); CALCIUM 9.1 mg/dL (8.4-10.2); CREATININE, SERUM 1.71 mg/dL (0.72-1.25); MAGNESIUM 2.4 MG/DL (1.3-2.1); POTASSIUM 3.4 mmol/L (3.5-5.1)
[2022-07-07] MEDS: ATORVASTATIN 10 MG TAB PO SCH (20:24)
[2022-07-08] VITALS (7 sets, daily range): BP systolic 91–127; BP diastolic 74–88
[2022-07-08 06:36] LABS: ALBUMIN 2.8 g/dL (3.5-5.0); ALBUMIN/GLOBULIN RATIO 0.9 (0.8-2.0); ANION GAP 18.1 mmol/L (8-16); CALCIUM 9.6 mg/dL (8.4-10.2); CREATININE, SERUM 1.64 mg/dL (0.72-1.25); POTASSIUM 3.1 mmol/L (3.5-5.1)
[2022-07-08] MEDS: FENOFIBRATE 50 MG PO SCH (09:00)
[2022-07-08] MEDS ORDERED: ALDACTONE25 MG PO (09:46)
[2022-07-08] MEDS: RIVAROXABAN 15 MG TABLET PO SCH (09:57)
[2022-07-08] MEDS: PAROXETINE HCL 20 MG TAB PO SCH (09:57)
[2022-07-08] MEDS: FINASTERIDE 5 MG TAB PO SCH (09:57)
[2022-07-08] MEDS: SPIRONOLACTONE 25 MG TAB PO SCH ×2 (09:58→17:57)
[2022-07-08] MEDS: MULTIVITAMINS/MINERALS TAB PO SCH (09:58)
[2022-07-08] MEDS: METOPROLOL SUCCINATE 25 MG TAB XL PO SCH (10:00)
[2022-07-08] MEDS ORDERED: POTASSIUM CHLORIDE 10MEQ EA PO ONE (10:30)
[2022-07-08] MEDS ORDERED: POTASSIUM CHLORIDE 20MEQ/100ML 200 ML IV ONE (11:30)
[2022-07-08] MEDS: ATORVASTATIN 10 MG TAB PO SCH (20:24)
== END 2022-07-08 21:30 | DRG 291 ==
LOC: ER 10:03 → ERHOLD 12:27 → MED/SURG2 21:03
PROVIDERS: ADMIT Internal Medicine; ATTEND Internal Medicine
DX: I13.0 Hypertensive heart and chronic kidney disease with heart failure and stage 1 through stage 4 chronic kidney disease, or unspecified chronic kidney disease (principal); I50.43 Acute on chronic combined systolic (congestive) and diastolic (congestive) heart failure; N17.9 Acute kidney failure, unspecified; N18.32 Chronic kidney disease, stage 3b; E11.22 Type 2 diabetes mellitus with diabetic chronic kidney disease; Z79.4 Long term (current) use of insulin; F03.90 Unspecified dementia, unspecified severity, without behavioral disturbance, psychotic disturbance, mood disturbance, and anxiety; M19.91 Primary osteoarthritis, unspecified site; I48.0 Paroxysmal atrial fibrillation; Z79.01 Long term (current) use of anticoagulants; I25.10 Atherosclerotic heart disease of native coronary artery without angina pectoris; Z95.5 Presence of coronary angioplasty implant and graft; R94.4 Abnormal results of kidney function studies; Z95.810 Presence of automatic (implantable) cardiac defibrillator; R29.6 Repeated falls; K76.89 Other specified diseases of liver; E78.2 Mixed hyperlipidemia; Z90.5 Acquired absence of kidney; Z20.822 Contact with and (suspected) exposure to COVID-19
CPT/HCPCS: 36415; 70450; 71045; 71046; 74176; 76770; 80048; 80053; 81001; 81050; 82570; 82575; 82607; 83735; 83880; 84100; 84156; 84443; 84484; 84550; 85025; 93005; 93306; 94799; 96360; 96361; 99284; J1940; J3475; J3480; J7040

== ENCOUNTER 2022-08-04 11:50 | Emergency (ER) | payer MEDICARE ==
[~2022-08-04] VITALS: Ht 190.5 cm; Wt 104.3 kg
[~2022-08-04 11:50] MED LIST changes: +ALDACTONE25 MG PO
[2022-08-04 12:48] LABS: BASOPHILS % 0.5 % (0.0-1.0); EOSINOPHILS # (AUTO) 0.1 (0.0-0.4); EOSINOPHILS % 1.4 % (0.0-6.0); HEMATOCRIT 42.9 % (38.2-49.6); HEMOGLOBIN 13.9 g/dL (14.0-18.0); LYMPHOCYTES # (AUTO) 1.2 (1.0-3.2); MEAN CORPUSCULAR HEMOGLOBIN 30.6 pg (28-32); MEAN CORPUSCULAR HGB CONC 32.4 g/dL (31-35); MEAN CORPUSCULAR VOLUME 94.5 fL (81-99); MONOCYTES # (AUTO) 0.3 (0.2-0.8); MONOCYTES % 4.8 % (4.4-11.3); NEUTROPHILS # (AUTO) 4.3 (2.1-6.9); PLATELET COUNT 241 x10e3/uL (140-360); RED BLOOD COUNT 4.54 x10e6/uL (4.3-5.7); RED CELL DISTRIBUTION WIDTH 15.4 % (11.7-14.4)
[2022-08-04 13:25] LABS: ALBUMIN 2.9 g/dL (3.5-5.0); ALBUMIN/GLOBULIN RATIO 0.8 (0.8-2.0); CREATININE, SERUM 1.24 mg/dL (0.72-1.25)
[2022-08-04 14:43] VITALS: BP 97/65
== END 2022-08-04 14:04 | disposition home or self-care (01) ==
LOC: ER 12:01
DX: I95.9 Hypotension, unspecified (principal); R53.1 Weakness; I10 Essential (primary) hypertension; I50.9 Heart failure, unspecified; I48.91 Unspecified atrial fibrillation; I25.10 Atherosclerotic heart disease of native coronary artery without angina pectoris; Z85.528 Personal history of other malignant neoplasm of kidney; Z95.5 Presence of coronary angioplasty implant and graft; Z95.810 Presence of automatic (implantable) cardiac defibrillator
CPT/HCPCS: 36415; 71045; 80053; 83880; 84484; 85025; 93005; 99283

== ENCOUNTER 2022-08-26 08:17 | Inpatient (IN) | payer MEDICARE ==
[~2022-08-26] VITALS: Ht 165.1 cm; Wt 104.3 kg
[2022-08-26 08:57] LABS: BASOPHILS % 0.2 % (0.0-1.0); HEMATOCRIT 37.2 % (38.2-49.6); HEMOGLOBIN 11.9 g/dL (14.0-18.0); LYMPHOCYTES # (AUTO) 0.7 (1.0-3.2); LYMPHOCYTES % 11.7 % (18.0-39.1); MEAN CORPUSCULAR HEMOGLOBIN 30.3 pg (28-32); MEAN CORPUSCULAR VOLUME 94.7 fL (81-99); MONOCYTES # (AUTO) 0.4 (0.2-0.8); MONOCYTES % 6.6 % (4.4-11.3); NEUTROPHILS # (AUTO) 4.8 (2.1-6.9); NEUTROPHILS % 81.3 % (38.7-80.0); PLATELET COUNT 173 x10e3/uL (140-360); RED BLOOD COUNT 3.93 x10e6/uL (4.3-5.7); RED CELL DISTRIBUTION WIDTH 16.3 % (11.7-14.4)
[2022-08-26 09:13] LABS: INR 1.1; PROTHROMBIN TIME 15.2 seconds (11.9-14.5)
[2022-08-26 09:14] LABS: PARTIAL THROMBOPLASTIN TIME 35.7 seconds (23.8-35.5)
[2022-08-26 09:23] LABS: ALANINE AMINOTRANSFERASE 35 IU/L (0-55); ALBUMIN 2.6 g/dL (3.5-5.0); ALBUMIN/GLOBULIN RATIO 0.9 (0.8-2.0); ALKALINE PHOSPHATASE 79 IU/L (40-150); ANION GAP 14.8 mmol/L (8-16); BLOOD UREA NITROGEN 24 mg/dL (7-26); BUN/CREATININE RATIO 24 (6-25); CALCIUM 8.6 mg/dL (8.4-10.2); CARBON DIOXIDE 25 mmol/L (22-29); CHLORIDE 107 mmol/L (98-107); CREATINE KINASE 13 IU/L (30-200); CREATININE, SERUM 1.01 mg/dL (0.72-1.25); GLUCOSE 131 mg/dL (74-118); POTASSIUM 3.8 mmol/L (3.5-5.1); SODIUM 143 mmol/L (136-145)
[2022-08-26 09:30] LABS: CREATINE KINASE MB < 1.00 ng/mL (0-4.3)
[2022-08-26] MEDS ORDERED: FUROSEMIDE INJ 10 MG/ML 2 ML VIAL IV ONE (10:00)
[2022-08-26] MEDS ORDERED: ALBUTEROL/IPRATROPIUM 3 ML NEB NEB ONE (12:00)
[2022-08-26 12:26] LABS: CLARITY,URINE CLOUDY (CLEAR); COLOR,URINE RED (YELLOW)
[2022-08-26 12:27] LABS: KETONES,URINE NEGATIVE (NEGATIVE)
[2022-08-26 12:28] LABS: LEUKOCYTE ESTERASE ,URINE SMALL (NEGATIVE); NITRITE,URINE NEGATIVE (NEGATIVE); PROTEIN,URINE DIPSTICK >=300 (NEGATIVE); URINE UROBILINOGEN 0.2 mg/dL (0.2 - 1)
[2022-08-26 12:32] LABS: RBC,URINE >50 /HPF (0-5)
[2022-08-26 12:33] LABS: BACTERIA,URINE FEW /HPF; EPITHELIAL CELLS,URINE RARE /LPF
[2022-08-26] MEDS: FUROSEMIDE INJ 10 MG/ML 2 ML VIAL IV SCH (17:00)
[2022-08-26 17:14] VITALS: BP 128/79
[2022-08-26 17:34] LABS: CREATINE KINASE MB 0.5 ng/mL (0-5.0)
[2022-08-26 17:52] VITALS: BP 128/79
[2022-08-26] MEDS: LEVALBUTEROL HCL SOLN NEBU 0.63 MG/3 ML NEB INH SCH (20:30)
[2022-08-26 20:42] VITALS: BP 101/72
[2022-08-26] MEDS ORDERED: METOPROLOL TARTRATE INJ 1 MG/ML VIAL IV PRN (20:45)
[2022-08-26] MEDS ORDERED: ONDANSETRON HCL INJ 2MG/ML 2ML 2 MG/ML VIAL IV PRN (20:45)
[2022-08-26] MEDS ORDERED: ACETAMINOPHEN 325 MG TAB PO PRN (20:45)
[2022-08-26 21:00] VITALS: BP 101/72
[2022-08-26 23:46] VITALS: BP 120/85
[2022-08-27] VITALS (35 sets, daily range): BP systolic 86–133; BP diastolic 53–114
[2022-08-27] MEDS: LEVALBUTEROL HCL SOLN NEBU 0.63 MG/3 ML NEB INH SCH ×4 (01:10→19:40)
[2022-08-27 01:41] LABS: CREATINE KINASE MB 0.7 ng/mL (0-5.0)
[2022-08-27 04:58] LABS: BASOPHILS % 0.1 % (0.0-1.0); HEMATOCRIT 38.4 % (38.2-49.6); HEMOGLOBIN 12.6 g/dL (14.0-18.0); LYMPHOCYTES # (AUTO) 0.6 (1.0-3.2); LYMPHOCYTES % 5.3 % (18.0-39.1); MEAN CORPUSCULAR HEMOGLOBIN 30.1 pg (28-32); MEAN CORPUSCULAR HGB CONC 32.8 g/dL (31-35); MEAN CORPUSCULAR VOLUME 91.6 fL (81-99); MONOCYTES # (AUTO) 0.6 (0.2-0.8); MONOCYTES % 5.3 % (4.4-11.3); NEUTROPHILS # (AUTO) 9.4 (2.1-6.9); NEUTROPHILS % 88.9 % (38.7-80.0); PLATELET COUNT 188 x10e3/uL (140-360); RED BLOOD COUNT 4.19 x10e6/uL (4.3-5.7); RED CELL DISTRIBUTION WIDTH 16.3 % (11.7-14.4)
[2022-08-27 05:16] LABS: ALBUMIN 2.6 g/dL (3.5-5.0); ALBUMIN/GLOBULIN RATIO 0.9 (0.8-2.0); ANION GAP 16.9 mmol/L (8-16); CALCIUM 9.1 mg/dL (8.4-10.2); CREATININE, SERUM 1.2 mg/dL (0.72-1.25); POTASSIUM 3.9 mmol/L (3.5-5.1)
[2022-08-27 05:53] LABS: MAGNESIUM 2.1 MG/DL (1.3-2.1); PHOSPHORUS 4.3 MG/DL (2.3-4.7)
[2022-08-27] MEDS: FUROSEMIDE INJ 10 MG/ML 2 ML VIAL IV SCH (09:00)
[2022-08-27 09:16] LABS: ABG PH 7.34 (7.35-7.45)
[2022-08-27 09:17] LABS: ABG HCO3 21 mmol/L (22-26); ABG PCO2 31 mmHg (35-45); ABG PO2 126 mmHg (80-105); ABG TCO2 22
[2022-08-27] MEDS: FAMOTIDINE 20 MG/2 ML VIAL IV SCH ×2 (09:28→18:29)
[2022-08-27] MEDS ORDERED: RISPERIDONE 0.5 MG TAB PO PRN (10:00)
[2022-08-27] MEDS ORDERED: SODIUM CHLORIDE 0.9% 250ML 250 ML ONE (11:35)
[2022-08-27] MEDS: FUROSEMIDE INJ 100 MG in SODIUM CHLORIDE 0.9% 90 ML IV SCH ×2 (11:39→20:42)
[2022-08-27] MEDS ORDERED: ALBUMIN 5% 0.05 GM/ML BTL IV ONE (17:15)
[2022-08-27] MEDS: DEXMEDETOMIDINE 400MCG/NS100ML 100 ML IV PRN ×2 (17:41→23:09)
[2022-08-27] MEDS ORDERED: ALBUMIN 5% 250ML 500 ML IV ONE (17:45)
[2022-08-28] VITALS (45 sets, daily range): BP systolic 80–158; BP diastolic 45–148
[2022-08-28] MEDS: LEVALBUTEROL HCL SOLN NEBU 0.63 MG/3 ML NEB INH SCH ×4 (01:15→19:15)
[2022-08-28] MEDS ORDERED: BUMETANIDE IV SCH (03:30)
[2022-08-28] MEDS ORDERED: SODIUM CHLORIDE 0.9% IV SCH (03:30)
[2022-08-28] MEDS ORDERED: BUMETANIDE INJ 0.25MG/ML 4ML VIAL IV ONE (03:30)
[2022-08-28] MEDS ORDERED: SODIUM CHLORIDE 0.9% 500ML 500 ML IV ONE (03:45)
[2022-08-28] MEDS ORDERED: SODIUM CHLORIDE 0.9% 1000ML 1,000 ML ONE (03:59)
[2022-08-28] MEDS: DEXMEDETOMIDINE 400MCG/NS100ML 100 ML IV PRN ×3 (05:35→16:35)
[2022-08-28 06:54] LABS: HEMATOCRIT 34.6 % (38.2-49.6); LYMPHOCYTES # (AUTO) 0.3 (1.0-3.2); LYMPHOCYTES % 3.4 % (18.0-39.1); MEAN CORPUSCULAR HEMOGLOBIN 30.1 pg (28-32); MEAN CORPUSCULAR HGB CONC 31.8 g/dL (31-35); MEAN CORPUSCULAR VOLUME 94.5 fL (81-99); MONOCYTES # (AUTO) 0.3 (0.2-0.8); MONOCYTES % 3.5 % (4.4-11.3); NEUTROPHILS # (AUTO) 8.7 (2.1-6.9); NEUTROPHILS % 92.8 % (38.7-80.0); PLATELET COUNT 153 x10e3/uL (140-360); RED BLOOD COUNT 3.66 x10e6/uL (4.3-5.7); RED CELL DISTRIBUTION WIDTH 16.6 % (11.7-14.4)
[2022-08-28 07:12] LABS: ANION GAP 15.5 mmol/L (8-16); CALCIUM 7.7 mg/dL (8.4-10.2); CREATININE, SERUM 1.33 mg/dL (0.72-1.25); POTASSIUM 3.5 mmol/L (3.5-5.1)
[2022-08-28 08:11] LABS: LYMPHOCYTES % (MANUAL) 3 % (19-48); NEUTROPHILS % (MANUAL) 97 % (40-74); NUCLEATED RED BLOOD CELLS 2; PLATELET ESTIMATE ADEQUATE; PLATELET MORPHOLOGY COMMENT NORMAL
[2022-08-28 08:12] LABS: RBC MORPHOLOGY COMMENT NORMAL
[2022-08-28] MEDS: FAMOTIDINE 20 MG/2 ML VIAL IV SCH ×2 (08:20→16:46)
[2022-08-28] MEDS: BALSAM PERU/CASTOR OIL 60 GM OINT...G. TP SCH (08:21)
[2022-08-28] MEDS ORDERED: POTASSIUM CHLORIDE 10MEQ/100ML 100 ML IV ONE (10:30)
[2022-08-28] MEDS ORDERED: DEXTROSE 5% 1,000 ML IV ONE (10:30)
[2022-08-28] MEDS ORDERED: METHYLPREDNISOLONE SOD SUCC 40 MG/ML VIAL 1ML IV ONE (10:30)
[2022-08-28] MEDS ORDERED: BUMETANIDE 10 MG in SODIUM CHLORIDE 0.9% 60 ML IV SCH (12:00)
[2022-08-28] MEDS ORDERED: SODIUM CHLORIDE 0.9% 250ML 250 ML ONE (12:19)
[2022-08-28] MEDS ORDERED: DEXTROSE 5% 1,000 ML IV SCH (14:30)
[2022-08-28] MEDS ORDERED: ZIPRASIDONE 20 MG VIAL IM STA (16:13)
[2022-08-29] VITALS (56 sets, daily range): BP systolic 65–99; BP diastolic 41–80
[2022-08-29] MEDS: LEVALBUTEROL HCL SOLN NEBU 0.63 MG/3 ML NEB INH SCH ×4 (02:10→19:15)
[2022-08-29] MEDS: FAMOTIDINE 20 MG/2 ML VIAL IV SCH ×2 (08:03→17:23)
[2022-08-29] MEDS: BALSAM PERU/CASTOR OIL 60 GM OINT...G. TP SCH (08:04)
[2022-08-29] MEDS ORDERED: SODIUM CHLORIDE 0.9% 1000ML 500 ML IV ONE (13:00)
== END 2022-08-29 20:25 | disposition hospice, home (50) | DRG 291 ==
LOC: ER 08:19 → ERHOLD 11:14 → MED/SURG2 16:31 → ICU 08-27 10:06
PROVIDERS: ADMIT Internal Medicine; ATTEND Internal Medicine
PROC: 5A09357 Assistance with Respiratory Ventilation, Less than 24 Consecutive Hours, Continuous Positive Airway Pressure (ICD-10-PCS; principal; 2022-08-27)
PROC: 02HV33Z Insertion of Infusion Device into Superior Vena Cava, Percutaneous Approach (ICD-10-PCS; 2022-08-27)
DX: I13.0 Hypertensive heart and chronic kidney disease with heart failure and stage 1 through stage 4 chronic kidney disease, or unspecified chronic kidney disease (principal); I50.23 Acute on chronic systolic (congestive) heart failure; J96.01 Acute respiratory failure with hypoxia; J18.9 Pneumonia, unspecified organism; N17.9 Acute kidney failure, unspecified; N13.8 Other obstructive and reflux uropathy; S37.39XA Other injury of urethra, initial encounter; E87.4 Mixed disorder of acid-base balance; E87.0 Hyperosmolality and hypernatremia; L89.151 Pressure ulcer of sacral region, stage 1; F03.90 Unspecified dementia, unspecified severity, without behavioral disturbance, psychotic disturbance, mood disturbance, and anxiety; D64.9 Anemia, unspecified; S50.811A Abrasion of right forearm, initial encounter; N39.498 Other specified urinary incontinence; I25.10 Atherosclerotic heart disease of native coronary artery without angina pectoris; I48.0 Paroxysmal atrial fibrillation; N18.30 Chronic kidney disease, stage 3 unspecified; N40.1 Benign prostatic hyperplasia with lower urinary tract symptoms; M19.90 Unspecified osteoarthritis, unspecified site; R45.88 Nonsuicidal self-harm; Z66 Do not resuscitate; Z85.528 Personal history of other malignant neoplasm of kidney; Z95.5 Presence of coronary angioplasty implant and graft; Z95.810 Presence of automatic (implantable) cardiac defibrillator; Z90.5 Acquired absence of kidney; Z82.49 Family history of ischemic heart disease and other diseases of the circulatory system; Z91.81 History of falling; Z87.440 Personal history of urinary (tract) infections; Z20.822 Contact with and (suspected) exposure to COVID-19; Z51.5 Encounter for palliative care
CPT/HCPCS: 36415; 36569; 36600; 51700; 70450; 71045; 76770; 80048; 80053; 80061; 81001; 82550; 82553; 82805; 82948; 83036; 83735; 83880; 84100; 84484; 85025; 85610; 85730; 87040; 87086; 87400; 93005; 93306; 94640; 94660; 94760; 94799; 99251; 99285; J0456; J0696; J1940; J2920; J3480; J3486; J7030; J7050; J7070; P9045